=== PATIENT | male | born 1945 | race Caucasian/White ===

== ENCOUNTER → 2018-01-21 08:21 | Outpatient (REF) | payer MEDICARE, OTHER, SELFPAY ==
[2018-01-21 08:31] LABS: Adenovirus F 40/41, stool Not Detected (NotDetected); Astrovirus Not Detected (NotDetected); Campylobacter Not Detected (NotDetected); Clostridium Difficile A/B, PCR Not Detected (NotDetected); Cryptosporidium Not Detected (NotDetected); Cyclospora Cayetanesis Not Detected (NotDetected); Entamoeba histolytica Not Detected (NotDetected); Enteroaggregative E coli Not Detected (NotDetected); Enteropathogenic E coli Not Detected (NotDetected); Enterotoxigenic E coli Not Detected (NotDetected); Giardia lamblia Not Detected (NotDetected); Norovirus Not Detected (NotDetected); Plesimonas Shigalloides, PCR Not Detected (NotDetected); Rotavirus A Not Detected (NotDetected); Salmonella, PCR Not Detected (NotDetected); Sapovirus Not Detected (NotDetected); Shiga-like toxin E coli Not Detected (NotDetected); Shigella Enterovasive E coli Not Detected (NotDetected); Vibrio Cholerae Not Detected (NotDetected); Vibrio, PCR Not Detected (NotDetected); Yersinia Entercolitica, PCR Not Detected (NotDetected)
== END ==
LOC: LAB.CARL 08:21
PROVIDERS: Visit Provider Physician Assistant
DX: R19.7 Diarrhea, unspecified (principal)
CPT/HCPCS: 87507

== ENCOUNTER → 2022-05-20 13:50 | Outpatient (CLI) | payer MEDICARE, SELFPAY | PROVIDERS: PCP Family Medicine; Visit Provider Student in an Organized Health Care Education/Training Program | DX: E11.9 Type 2 diabetes mellitus without complications (principal); Z79.84 Long term (current) use of oral hypoglycemic drugs | CPT/HCPCS: 83036 ==

== ENCOUNTER → 2022-07-06 10:33 | Outpatient (CLI) | payer MEDICARE, SELFPAY ==
[2022-07-06 19:00] LABS: Alanine Aminotransferase 20 U/L (12-78); Albumin Level 4.6 g/dl (3.5-5.0); Albumin/Globulin Ratio 1.9 (1.1-1.8); Alkaline Phosphatase 134 U/L (38-126); Anion Gap 21.9 mEq/L (5-15); Aspartate Amino Transferase 31 U/L (17-59); Bilirubin,Total 0.7 mg/dl (0.2-1.3); Blood Urea Nitrogen 25 mg/dl (9-20); Calcium 10.7 mg/dl (8.4-10.2); Carbon Dioxide 26 mmol/L (22.0-30.0); Chloride 97 mmol/L (98-107); Estimated Glomerular Filt Rate 73 ml/min (>60); GFR (African American) 88 ML/MIN (>60); Globulin 2.4 g/dL (1.3-3.2); Glucose 141 mg/dl (74-100); Potassium 4.9 mmoL/L (3.5-5.1); Sodium 140 mmol/L (136-145)
[2022-07-06 19:26] LABS: Basophils % 0.3 % (0.1-2.0); Eosinophils # 0.1 K/mm3 (0.0-0.4); Eosinophils % 1.1 % (0.1-12.0); Hematocrit 46.8 % (42.0-52.0); Hemoglobin 15.2 g/dL (14.1-18.0); Lymphocytes # 1.2 K/mm3 (0.7-4.5); Mean Corpuscular HGB Conc 32.6 g/dL (31.8-35.4); Mean Corpuscular Volume 101.4 fl (80-94); Mean Platelet Volume 9.1 fl (7.4-10.4); Monocytes # 0.7 K/mm3 (0.1-1.0); Monocytes % 6.5 % (1.7-9.3); Neutrophils # 8.4 K/mm3 (1.8-7.8); Platelet Count 413 K/mm3 (142-424); Red Blood Count 4.61 M/mm3 (4.60-6.20); Red Cell Distribution Width 12.6 % (11.5-17.5); White Blood Count 10.4 K/mm3 (4.8-10.8)
[2022-07-06 19:30] LABS: Thyroid Stimulating Hormone 1.83 uIU/mL (0.465-4.68)
== END ==
PROVIDERS: PCP Family Medicine; Visit Provider Family Medicine
DX: I10 Essential (primary) hypertension (principal); R53.83 Other fatigue; E83.52 Hypercalcemia
CPT/HCPCS: 80053; 83970; 84443; 85025

== ENCOUNTER → 2022-10-05 23:30 | Outpatient (CLI) | payer MEDICARE, SELFPAY ==
[2022-10-05 17:17] LABS: Anion Gap 11.5 mEq/L (5-15); Blood Urea Nitrogen 22 mg/dl (9-20); Calcium 9.2 mg/dl (8.4-10.2); Carbon Dioxide 29 mmol/L (22.0-30.0); Chloride 104 mmol/L (98-107); Estimated Glomerular Filt Rate 73 ml/min (>60); GFR (African American) 88 ML/MIN (>60); Glucose 125 mg/dl (74-100); Potassium 4.5 mmoL/L (3.5-5.1); Sodium 140 mmol/L (136-145)
[2022-10-05 17:41] LABS: Hemoglobin A1C 6.9 % (4.0-6.0)
[2022-10-05 17:49] LABS: Thyroid Stimulating Hormone 1.02 uIU/mL (0.465-4.68)
[2022-10-05 18:08] LABS: Vitamin B12 368 pg/mL (239-931)
== END ==
PROVIDERS: PCP Family Medicine; Visit Provider Family Medicine
DX: G62.9 Polyneuropathy, unspecified; E11.69 Type 2 diabetes mellitus with other specified complication; Z79.84 Long term (current) use of oral hypoglycemic drugs
CPT/HCPCS: 80048; 82607; 83036; 84443

== ENCOUNTER → 2022-10-12 17:17 | Outpatient (CLI) | payer MEDICARE, SELFPAY ==
[2022-10-18 16:13] LABS: Folate, Hemolysate >620.0
== END ==
PROVIDERS: PCP Family Medicine; Visit Provider Family Medicine
DX: G62.9 Polyneuropathy, unspecified (principal)
CPT/HCPCS: 82747; 85014

== ENCOUNTER → 2023-04-26 23:16 | Outpatient (CLI) | payer MEDICARE, SELFPAY ==
[2023-04-26 17:04] LABS: Alanine Aminotransferase 21 U/L (12-78); Albumin Level 4.1 g/dl (3.5-5.0); Albumin/Globulin Ratio 1.6 (1.1-1.8); Alkaline Phosphatase 109 U/L (38-126); Anion Gap 15.4 mEq/L (5-15); Aspartate Amino Transferase 26 U/L (17-59); Basophils % 0.3 % (0.1-2.0); Bilirubin,Total 0.5 mg/dl (0.2-1.3); Blood Urea Nitrogen 27 mg/dl (9-20); Calcium 9.8 mg/dl (8.4-10.2); Carbon Dioxide 29 mmol/L (22.0-30.0); Chloride 99 mmol/L (98-107); Chol/HDL Ratio 4.5 (1-3.5); Cholesterol 206 mg/dl (140-200); Eosinophils # 0.1 K/mm3 (0.0-0.4); Eosinophils % 0.8 % (0.1-12.0); Estimated Glomerular Filt Rate 65 ml/min (>60); GFR (African American) 79 ML/MIN (>60); Globulin 2.5 g/dL (1.3-3.2); Glucose 119 mg/dl (74-100); HDL Cholesterol 46 mg/dl (40-60); Hematocrit 46.6 % (42.0-52.0); Hemoglobin 15.3 g/dL (14.1-18.0); Lymphocytes # 1.6 K/mm3 (0.7-4.5); Mean Corpuscular Volume 103.1 fl (80-94); Monocytes # 0.7 K/mm3 (0.1-1.0); Monocytes % 6.4 % (1.7-9.3); Neutrophils # 7.9 K/mm3 (1.8-7.8); Neutrophils % 76.6 % (37.0-80.0); Platelet Count 238 K/mm3 (142-424); Potassium 4.4 mmoL/L (3.5-5.1); Red Blood Count 4.51 M/mm3 (4.60-6.20); Red Cell Distribution Width 12.6 % (11.5-17.5); Sodium 139 mmol/L (136-145); Total Protein,Serum 6.6 g/dl (6.3-8.2); Triglycerides 300 mg/dl (30-150); VLDL Cholesterol 60 mg/dL (0-40); White Blood Count 10.3 K/mm3 (4.8-10.8)
[2023-04-26 17:15] LABS: Direct LDL Cholesterol 110.43 mg/dL (100-129)
[2023-04-26 17:26] LABS: Hemoglobin A1C 5.9 % (4.0-6.0)
== END ==
PROVIDERS: PCP Family Medicine; Visit Provider Family Medicine
DX: E11.9 Type 2 diabetes mellitus without complications (principal); Z00.00 Encounter for general adult medical examination without abnormal findings; I10 Essential (primary) hypertension; Z79.84 Long term (current) use of oral hypoglycemic drugs; Z79.899 Other long term (current) drug therapy
CPT/HCPCS: 80053; 80061; 83036; 85025

== ENCOUNTER → 2023-06-04 08:27 | Outpatient (CLI) | payer MEDICARE, SELFPAY ==
[2023-06-04 16:52] LABS: Basophils % 0.6 % (0.1-2.0); Eosinophils # 0.1 K/mm3 (0.0-0.4); Eosinophils % 1.7 % (0.1-12.0); Hematocrit 43.9 % (42.0-52.0); Hemoglobin 14.7 g/dL (14.1-18.0); Lymphocytes # 1.2 K/mm3 (0.7-4.5); Lymphocytes % 17.4 % (10-50); Mean Corpuscular HGB Conc 33.5 g/dL (31.8-35.4); Mean Corpuscular Hemoglobin 33.8 pg (27.0-31.2); Mean Corpuscular Volume 100.8 fl (80-94); Monocytes # 0.5 K/mm3 (0.1-1.0); Monocytes % 6.6 % (1.7-9.3); Neutrophils # 5.3 K/mm3 (1.8-7.8); Neutrophils % 73.9 % (37.0-80.0); Platelet Count 240 K/mm3 (142-424); Red Blood Count 4.35 M/mm3 (4.60-6.20); Red Cell Distribution Width 12.8 % (11.5-17.5); White Blood Count 7.2 K/mm3 (4.8-10.8)
[2023-06-04 17:01] LABS: Anion Gap 11.8 mEq/L (5-15); Blood Urea Nitrogen 20 mg/dl (9-20); Calcium 9.5 mg/dl (8.4-10.2); Carbon Dioxide 30 mmol/L (22.0-30.0); Chloride 104 mmol/L (98-107); Estimated Glomerular Filt Rate 82 ml/min (>60); GFR (African American) 99 ML/MIN (>60); Glucose 122 mg/dl (74-100); Potassium 4.8 mmoL/L (3.5-5.1); Sodium 141 mmol/L (136-145)
[2023-06-04 17:20] LABS: T4 (Thyroxine) 7.4 ug/dl (5.53-11.0); Triiodothryronine (T3) Uptake 34 % (23.5-40.5)
[2023-06-04 17:34] LABS: Prostate Specific Ag Screen 2.1 ng/ml (0.0-4.0)
[2023-06-04 17:53] LABS: Erythrocyte Sedimentation Rate 14 mm/hr (0-20); Vitamin B12 538 pg/mL (239-931)
[2023-06-04 18:00] LABS: Free T4 (Free Thyroxine) 0.92 ng/dl (0.78-2.19)
[2023-06-06 10:10] LABS: C-Reactive Protein < 0.2 mg/L (0-4)
[2023-06-08 09:00] LABS: Antinuclear Antibodies (ANA) Negative
== END ==
PROVIDERS: PCP Nurse Practitioner Family; Visit Provider Nurse Practitioner Family
DX: R53.83 Other fatigue (principal); Z12.5 Encounter for screening for malignant neoplasm of prostate; Z79.899 Other long term (current) drug therapy
CPT/HCPCS: 80048; 82607; 84436; 84439; 84443; 84479; 85025; 85651; 86038; 86140; G0103

== ENCOUNTER 2023-10-26 20:17 | Outpatient (CLI) | payer MEDICARE, SELFPAY ==
[2023-10-26 16:51] LABS: Basophils % 0.5 % (0.1-2.0); Eosinophils # 0.2 K/mm3 (0.0-0.4); Eosinophils % 2.9 % (0.1-12.0); Hemoglobin 14.2 g/dL (14.1-18.0); Lymphocytes # 1.3 K/mm3 (0.7-4.5); Lymphocytes % 20.7 % (10-50); Mean Corpuscular HGB Conc 33.1 g/dL (31.8-35.4); Mean Corpuscular Hemoglobin 35.3 pg (27.0-31.2); Mean Corpuscular Volume 106.4 fl (80-94); Mean Platelet Volume 9.1 fl (7.4-10.4); Monocytes # 0.4 K/mm3 (0.1-1.0); Monocytes % 6.7 % (1.7-9.3); Neutrophils # 4.2 K/mm3 (1.8-7.8); Neutrophils % 69.2 % (37.0-80.0); Platelet Count 245 K/mm3 (142-424); Red Blood Count 4.04 M/mm3 (4.60-6.20); White Blood Count 6.1 K/mm3 (4.8-10.8)
[2023-10-26 16:52] LABS: Alanine Aminotransferase 29 U/L (12-78); Alkaline Phosphatase 111 U/L (38-126); Anion Gap 5.6 mEq/L (5-15); Aspartate Amino Transferase 34 U/L (17-59); Bilirubin,Total 0.5 mg/dl (0.2-1.3); Blood Urea Nitrogen 18 mg/dl (9-20); Calcium 9.8 mg/dl (8.4-10.2); Carbon Dioxide 33 mmol/L (22.0-30.0); Chloride 104 mmol/L (98-107); Chol/HDL Ratio 4.2 (1-3.5); Cholesterol 117 mg/dl (140-200); Estimated Glomerular Filt Rate 82 ml/min (>60); GFR (African American) 99 ML/MIN (>60); Glucose 112 mg/dl (74-100); HDL Cholesterol 28 mg/dl (40-60); Potassium 4.6 mmoL/L (3.5-5.1); Sodium 138 mmol/L (136-145); Triglycerides 147 mg/dl (30-150); VLDL Cholesterol 29 mg/dL (0-40)
== END 2023-10-26 23:59 ==
LOC: LAB.DROPOF 20:17
PROVIDERS: PCP Nurse Practitioner Family; Visit Provider Nurse Practitioner Family
DX: E11.9 Type 2 diabetes mellitus without complications (principal); E78.5 Hyperlipidemia, unspecified; Z79.84 Long term (current) use of oral hypoglycemic drugs
CPT/HCPCS: 80053; 80061; 83036; 85025

== ENCOUNTER 2024-06-16 11:20 | Outpatient (CLI) | payer MEDICARE, SELFPAY ==
[2024-06-16 16:34] LABS: Creatinine,Urine Random 131 mg/dL (Not Estab.); Microalbumin < 6.000 mg/L (0-16.7)
== END 2024-06-16 23:59 | disposition home or self-care (01) ==
LOC: LAB.DROPOF 06-19 11:20
PROVIDERS: PCP Family Medicine; Visit Provider Family Medicine
DX: E11.9 Type 2 diabetes mellitus without complications (principal)
CPT/HCPCS: 82043; 82570

== ENCOUNTER 2024-08-23 10:47 | Emergency (ER) | payer MEDICARE, SELFPAY ==
[2024-08-23 11:12] VITALS: BP 123/59; PULSE 102; RESP 102; TEMP 37.3; O2SAT 96; BMI 25.8
--- NOTE | 2024-08-23 11:17 | XR_ITS ---
PROCEDURE INFORMATION: Exam: XR Chest Exam date and time: 08/23/2024 11:31 AM Age: 79 years old Clinical indication: Cough; Additional info: Chest hurting/cough TECHNIQUE: Imaging protocol: Radiologic exam of the chest. Views: 2 views. COMPARISON: No relevant prior studies available. FINDINGS: Lungs: Unremarkable. No consolidation. Pleural spaces: Unremarkable. No pleural effusion. No pneumothorax. Heart/Mediastinum: Unremarkable. No cardiomegaly. Bones/joints: Prior median sternotomy. No acute bony abnormalities. IMPRESSION: No active disease.
[2024-08-23 11:19] LABS: Coronavirus 19, PCR Not Detected (NotDetected); Influenza B, PCR Not Detected (NotDetected)
--- NOTE | 2024-08-23 11:23 | ECG_ITS ---
APPROVED REPORT Exam: Resting ECG HR:96 bpm ECG Measurements Heart Rate 96 AXES DC 170 P 76 QRSd 146 QRS 20 QT 367 T 33 QTc 420 Conclusion SINUS RHYTHM INDETERMINATE AXIS RIGHT BUNDLE BRANCH BLOCK [120+ ms QRS DURATION, UPRIGHT V1, 40+ ms S IN I/aVL/V4/V5/V6] MODERATE VOLTAGE CRITERIA FOR LVH, CONSIDER NORMAL VARIANT [MEETS CRITERIA IN ONE OF: R(aVL), S(V1), R(V5), R(V5/V6)+S(V1)] POSSIBLE ANTERIOR MYOCARDIAL INFARCTION , OF INDETERMINATE AGE [30 ms Q WAVE IN V3/V4, OR R < 0.2 mV IN V4] INFERIOR MYOCARDIAL INFARCTION , PROBABLY OLD [40+ ms Q WAVE AND/OR ST/T ABNORMALITY IN II/aVF] ABNORMAL ECG Electronically signed by : SONIA PALACIO, 08/23/2024 15:31:07
[2024-08-23 11:30] VITALS: BP 127/62; PULSE 80; O2SAT 96
[2024-08-23 11:42] LABS: Chloride 102 mmol/L (98-107); Hematocrit 37.5 % (42.0-52.0); Hemoglobin 12.9 g/dL (14.1-18.0); Mean Corpuscular HGB Conc 34.4 g/dL (31.8-35.4); Mean Corpuscular Hemoglobin 33.5 pg (27.0-31.2); Mean Corpuscular Volume 97.4 fl (80-94); Potassium 3.9 mmoL/L (3.5-5.1); Red Blood Count 3.85 M/mm3 (4.60-6.20); Sodium 131 mmol/L (136-145); White Blood Count 7.7 K/mm3 (4.8-10.8)
[2024-08-23 11:43] LABS: Basophils % 0.4 % (0.1-2.0); Eosinophils % 0.5 % (0.1-12.0); Lymphocytes # 0.4 K/mm3 (0.7-4.5); Lymphocytes % 5.7 % (10-50); Mean Platelet Volume 9.1 fl (7.4-10.4); Monocytes # 0.8 K/mm3 (0.1-1.0); Monocytes % 10.4 % (1.7-9.3); Neutrophils # 6.3 K/mm3 (1.8-7.8); Neutrophils % 82.6 % (37.0-80.0); Platelet Count 162 K/mm3 (142-424)
[2024-08-23 11:45] LABS: Alanine Aminotransferase 26 U/L (12-78); Albumin/Globulin Ratio 1.9 (1.1-1.8); Alkaline Phosphatase 91 U/L (38-126); Anion Gap 5.9 mEq/L (5-15); Aspartate Amino Transferase 35 U/L (17-59); Bilirubin,Total 0.8 mg/dl (0.2-1.3); Blood Urea Nitrogen 17 mg/dl (9-20); Calcium 9.3 mg/dl (8.4-10.2); Carbon Dioxide 27 mmol/L (22.0-30.0); Creatinine Clearance Estimated 69 mL/min (50-200); Estimated Glomerular Filt Rate 72 ml/min (>60); GFR (African American) 88 ML/MIN (>60); Globulin 2.1 g/dL (1.3-3.2); Glucose 127 mg/dl (74-100); Total Protein,Serum 6.1 g/dl (6.3-8.2)
[2024-08-23 11:59] LABS: Troponin I < 0.01 ng/ml (0.00-0.034)
[2024-08-23 12:00] VITALS: BP 113/68; O2SAT 92
--- NOTE | 2024-08-23 12:12 | HMH.EDGENADL ---
Discharge Plan Disposition Patient Disposition: Home, Self-Care Condition: Good Prescriptions Prescriptions: New oseltamivir [Tamiflu] 75 mg capsule 75 mg PO BID 5 Days Qty: 10 0RF No Action multivitamin [Multiple Vitamins] Tablet 1 tab PO DAILY vitamin [id number] acid 1,000-400 mcg lozenge sublingual potassium citrate 99 mg capsule PO DAILY (DME) lancets [Accu-Chek Softclix Lancets] Misc See Rx Instructions .ROUTE .MEDSUPPLY Qty: 100 Rx Instructions: As directed aspirin 81 mg tablet,delayed release (DR/EC) 81 mg PO DAILY Qty: 30 3RF Zyrtec 10 mg capsule 10 mg PO DAILY PRN (Reason: allergy symptoms) Qty: 30 3RF ferrous sulfate 324 mg (65 mg iron) tablet,delayed release (DR/EC) 324 mg PO DAILY Qty: 30 3RF hydrocodone-acetaminophen 5-325 mg tablet 1 tab PO Q4-6H PRN (Reason: pain) Qty: 30 0RF atorvastatin 80 mg tablet See Rx Instructions .ROUTE .COMPLEX Qty: 90 3RF Dose Instruction: TAKE 1 TABLET BY MOUTH AT BEDTIME NIGHTLY Rx Instructions: TAKE 1 TABLET BY MOUTH AT BEDTIME NIGHTLY buspirone 15 mg tablet 15 mg PO TID Qty: 270 3RF glimepiride 1 mg tablet 1 mg PO DAILY Qty: 90 3RF hydrochlorothiazide 12.5 mg tablet 12.5 mg PO DAILY Qty: 90 3RF metformin 500 mg tablet extended release 24 hr See Rx Instructions .ROUTE .COMPLEX Qty: 360 3RF Dose Instruction: TAKE 2 TABLETS BY MOUTH TWICE DAILY FOR DIABETES Rx Instructions: TAKE 2 TABLETS BY MOUTH TWICE DAILY FOR DIABETES metoprolol tartrate 25 mg tablet 25 mg PO BID Qty: 180 3RF pregabalin 25 mg capsule 25 mg PO Q8H Qty: 90 3RF tamsulosin 0.4 mg capsule 0.4 mg PO DAILY 30 Days Qty: 90 3RF valsartan 40 mg tablet 40 mg PO DAILY 90 Days Qty: 90 3RF (DME) lancets [Accu-Chek Softclix Lancets] Misc See Rx Instructions .Route Qty: 100 3RF Rx Instructions: use 1 to check Glucose once a day (DME) Accu-Chek Guide test strips Strip See Rx Instructions .ROUTE .MEDSUPPLY Qty: 100 2RF Rx Instructions: Pt is to test once a day. clopidogrel 75 mg tablet 75 mg PO DAILY Qty: 90 0RF Referrals Follow up/Referrals: Mane Cui MD [Primary Care Provider] - See instructions Activity Restrictions/Add. Instructions Additional Instructions/Restrictions: Continue to take Tylenol alternating Motrin to control your fever and bodyaches. Stay hydrated. Return to the ER for any worsening signs or symptoms including shortness of breath low oxygen or worsening signs or symptoms as needed Clinical Impressions Clinical Impression: Influenza A Instructions Patient Instructions: DI for Viral Upper Respiratory Infection -- Adult Print Language Print Language: Slovak Discharge ED Provider: Augustin Duran General Adult HPI <YARIEL Shine - Last Filed: 08/23/24 13:46> General Chief complaint: Upper Respiratory Infection Stated complaint: cough,chest congestion,nasal drainage Time Seen by Provider: 08/23/24 11:30 Mode of Arrival: Ambulatory Source of Information: Patient Limitations: No Limitations Description of Symptoms (Recalled from ER Triage Doc. by RN): c/o sore throat, chest hurting while coughing, [place] and nasal drainage for a few days History of Present Illness HPI narrative: Patient presents for evaluation of cough headache fever chills for 3 days. Patient denies cardiac chest pain shortness of breath hemoptysis hematochezia melena nausea vomiting diarrhea. He has tried [id number] medications without success relief. Related Data Home Medications ?Medication ?Instructions ?Recorded ?Confirmed lancets (Accu-Chek Softclix #100 ea 05/20/22 07/31/24 Lancets) multivitamin (Multiple Vitamins 1 tab PO DAILY 05/20/22 07/31/24 tablet) potassium citrate 99 mg capsule mg PO DAILY 05/20/22 07/31/24 vitamin B12 1,000 mcg-folic acid demetris sublingual 05/20/22 07/31/24 400 mcg sublingual lozenge Previous Rx's ?Medication ?Instructions ?Recorded aspirin 81 mg tablet,delayed 81 mg PO DAILY #30 tabs 05/20/22 release cetirizine 10 mg capsule (Zyrtec) 10 mg PO DAILY PRN allergy 05/20/22 symptoms #30 caps ferrous sulfate 324 mg (65 mg 324 mg PO DAILY #30 tabs 05/20/22 iron) tablet,delayed release lancets (Accu-Chek Softclix #100 ea 05/07/23 Lancets) blood sugar diagnostic (Accu-Chek #100 ea 08/31/23 Guide test strips) atorvastatin 80 mg tablet See Rx Instructions .Route 03/13/24 .COMPLEX #90 tabs buspirone 15 mg tablet 15 mg PO TID #270 tabs 03/13/24 glimepiride 1 mg tablet 1 mg PO DAILY #90 tabs 03/13/24 hydrochlorothiazide 12.5 mg tablet 12.5 mg PO DAILY #90 tabs 03/13/24 metformin 500 mg tablet,extended See Rx Instructions .Route 03/13/24 release 24 hr .COMPLEX #360 tabs metoprolol tartrate 25 mg tablet 25 mg PO BID #180 tabs 03/13/24 pregabalin 25 mg capsule 25 mg PO Q8H #90 caps 03/13/24 tamsulosin 0.4 mg capsule 0.4 mg PO DAILY 30 days #90 caps 03/13/24 valsartan 40 mg tablet 40 mg PO DAILY HTN 90 days #90 tabs 03/13/24 hydrocodone 5 mg-acetaminophen 325 1 tab PO Q4-6H PRN pain #30 tabs 07/31/24 mg tablet clopidogrel 75 mg tablet 75 mg PO DAILY #90 tabs 08/14/24 oseltamivir 75 mg capsule (Tamiflu) 75 mg PO BID 5 days #10 caps 08/23/24 Allergies Allergy/AdvReac Type Severity Reaction Status Date / Time amoxicillin Allergy Verified 07/31/24 08:35 codeine Allergy Verified 07/31/24 08:35 lisinopril Allergy Verified 07/31/24 08:35 phenazopyridine (From Allergy Verified 07/31/24 08:35 Pyridium) contrast dye Allergy Uncoded 07/31/24 08:35 [facility] <YARIEL Shine - Last Filed: 08/23/24 13:46> [facility] Disclaimer: The information contained in this section may have been updated after the patient was seen, as this information can be updated by other users. Medical History Shingles Hypercalcemia Acute low back pain Kidney stone Hypertension Hyperlipidemia Heart failure Heart attack Diabetes mellitus Depression CAD (coronary artery disease) Coronary artery disease involving coronary bypass graft Sleep apnea Arthritis Surgical History Hx of CABG H/O heart artery stent H/O lithotripsy History of shoulder surgery Family History Daughter Hyperlipidemia Hypertension Diabetes Social History Smoking Status: Former smoker second hand exposure: No alcohol intake: never current occupational status: retired Travel in the last 8 weeks: None household members: spouse housing: house marital status: Have you lived/traveled outside [place] in past 30 days?: No Contact w/someone who lives/traveled outside US past 30 days?: No Exposure to someone with infectious disease in past 14 days?: No Do you have a fever (greater than 100.4 F or 38 C)?: No Have you tested positive for COVID-19: No Exposed to someone with COVID-19 in past 14 days?: No Do you have a sore throat?: No Do you have a cough?: Yes Do you have any weakness?: No Do you have any diarrhea?: No Are you experiencing any unusual bleeding?: No Do you have any muscle aches/pain?: No Do you have any abdominal pain?: No Are you experiencing loss of taste or smell?: No Other Medical History Have you received the Pneumonia Vaccine: No <YARIEL Shine - Last Filed: 08/23/24 13:46> ROS Obtained: Yes Systems reviewed as appropriate & no additional complaints except as documented Physical Exam <YARIEL Shine - Last Filed: 08/23/24 13:46> General General appearance: alert and in no apparent distress Respiratory Respiratory exam: Present normal lung sounds bilaterally Cardiovascular Cardiovascular exam: Present regular rate Neurological Exam Neurological exam: Present alert and oriented X3 Medical Decision Making <YARIEL Shine - Last Filed: 08/23/24 13:46> Medical Records Medical records reviewed: Yes I reviewed the patient's medical records. Screening: Per USPSTF and CDC recommendations, given the prevalence of disease in our region, it is our hospital?s policy to screen for HIV and viral Hepatitis for all patients aged 18 and over and those with ongoing risk factors. [place] Inquiry Pt receiving controlled substance: No Vital Signs: 12/25/24 11:12 08/23/24 11:30 08/23/24 12:00 Temperature 99.1 F Temperature Source Oral Pulse Rate 80 Pulse Rate [Left Radial] 102 H Respiratory Rate 102 H Blood Pressure 127/62 113/68 Blood Pressure [Right Arm] 123/59 L Blood Pressure Mean [Right Arm] 80 Blood Pressure Source Blood Pressure Position 02 Sat by Pulse Oximetry 96 96 92 L Oxygen Delivery Method Room Air Room Air Room Air 08/23/24 12:31 08/23/24 12:45 08/23/24 13:34 Temperature 98.9 F Temperature Source Oral Pulse Rate 65 103 H 63 Pulse Rate [Left Radial] Respiratory Rate 20 Blood Pressure 143/67 H 143/67 H 143/67 H Blood Pressure [Right Arm] Blood Pressure Mean [Right Arm] Blood Pressure Source Automatic Cuff Blood Pressure Position Sitting 02 Sat by Pulse Oximetry 97 94 L Oxygen Delivery Method Room Air Room Air Lab Data Lab results reviewed: Yes I reviewed the patient's lab results. Lab Results 08/23/24 11:17: SARS-CoV-2 (PCR) Not detected, Influenza A Untype (PCR) Detected A, Influenza Type B (PCR) Not detected 08/23/24 11:28: WBC 7.7, RBC 3.85 L, Hgb 12.9 L, Hct 37.5 L, MCV 97.4 H, MCH 33.5 H, MCHC 34.4, RDW 12.0, Plt Count 162, MPV 9.1, Neut % (Auto) 82.6 H, Lymph % (Auto) 5.7 L, Rogers % (Auto) 10.4 H, Eos % (Auto) 0.5, Baso % (Auto) 0.4, Neut # (Auto) 6.3, Lymph # (Auto) 0.4 L, Rogers # (Auto) 0.8, Eos # (Auto) 0.0, Baso # (Auto) 0.0, Sodium 131 L, Potassium 3.9, Chloride 102, Carbon Dioxide 27, Anion Gap 5.9, BUN 17, Creatinine 1.00, Estimated Creat Clear 69, Estimated GFR 72, Est GFR ( Amer) 88, Glucose 127 H, Calcium 9.3, Total Bilirubin 0.8, AST 35, ALT 26, Alkaline Phosphatase 91, Troponin I < 0.01, Total Protein 6.1 L, Albumin 4.0, Globulin 2.1, Albumin/Globulin Ratio 1.9 H 08/23/24 11:28 08/23/24 11:28 Orders (Tests/Meds): ED MEDICATIONS Discontinued Medications Generic Name Dose Route Start Last Admin Trade Name Dami PRN Reason Stop Dose Admin Acetaminophen 1,000 mg 08/23/24 12:14 08/23/24 12:24 Acetaminophen 500mg Tab PO 08/23/24 12:15 1,000 mg ONCE ONE Administration Ibuprofen 800 mg 08/23/24 12:14 08/23/24 12:24 Ibuprofen 400 Mg Tablet PO 08/23/24 12:15 800 mg ONCE ONE Administration Oseltamivir Phosphate 75 mg 08/23/24 13:18 08/23/24 13:28 Oseltamivir 75mg Capsule PO 08/23/24 13:19 75 mg ONCE ONE Administration ORDERS Category Date Time Status XR chest 2V Stat Exams 08/23/24 11:17 Completed Complete Blood Count Auto Diff Stat Lab 08/23/24 11:28 Completed Comprehensive Metabolic Panel Stat Lab 08/23/24 11:28 Completed Rapid PCR Covid and Flu A/B Stat Lab 08/23/24 11:17 Completed Troponin I Stat Lab 08/23/24 11:28 Completed Medical Decision Narrative: In summary patient is a 79-year-old male who presents to the emergency department for evaluation of cough myalgias fever headache. Patient is normotensive but tachycardic upon arrival, the temperature of 100.9 taken by myself. Physical exam shows some shivers hot to touch skin but no diaphoresis. Breath sounds are clear and equal bilaterally to the bases without adventitious sounds or increased work of breathing. Differential diagnosis includes viral or bacterial upper respiratory tract infection etc. Initial workup will be conducted with hematologic labs plain film chest x-ray COVID and flu swabs. Initial interventions include Tylenol and ibuprofen. Initial workup reviewed by me shows that patient has slight hyponatremia with remainder of his hematologic labs being nonactionable including normal CBC with no shift. My informal interpretation of his plain film chest x-ray shows no acute processes. Patient is influenza A positive per his respiratory swabs. Upon repeat evaluation patient is now with a heart rate of 63 breathing 20 times a minute with a temperature of 98.9 satting at 94% on room air. Given this patient is appropriate for discharge with prescription for Tamiflu with first dose given here. <Augustin Duran MD - Last Filed: 08/23/24 14:35> Vital Signs: 08/23/24 11:12 08/23/24 11:30 08/23/24 12:00 Temperature 99.1 F Temperature Source Oral Pulse Rate 80 Pulse Rate [Left Radial] 102 H Respiratory Rate 102 H Blood Pressure 127/62 113/68 Blood Pressure [Right Arm] 123/59 L Blood Pressure Mean [Right Arm] 80 Blood Pressure Source Blood Pressure Position 02 Sat by Pulse Oximetry 96 96 92 L Oxygen Delivery Method Room Air Room Air Room Air 08/23/24 12:31 08/23/24 12:45 08/23/24 13:34 Temperature 98.9 F Temperature Source Oral Pulse Rate 65 103 H 63 Pulse Rate [Left Radial] Respiratory Rate 20 Blood Pressure 143/67 H 143/67 H 143/67 H Blood Pressure [Right Arm] Blood Pressure Mean [Right Arm] Blood Pressure Source Automatic Cuff Blood Pressure Position Sitting 02 Sat by Pulse Oximetry 97 94 L Oxygen Delivery Method Room Air Room Air Lab Data Lab Results 08/23/24 11:17: SARS-CoV-2 (PCR) Not detected, Influenza A Untype (PCR) Detected A, Influenza Type B (PCR) Not detected 08/23/24 11:28: WBC 7.7, RBC 3.85 L, Hgb 12.9 L, Hct 37.5 L, MCV 97.4 H, MCH 33.5 H, MCHC 34.4, RDW 12.0, Plt Count 162, MPV 9.1, Neut % (Auto) 82.6 H, Lymph % (Auto) 5.7 L, Rogers % (Auto) 10.4 H, Eos % (Auto) 0.5, Baso % (Auto) 0.4, Neut # (Auto) 6.3, Lymph # (Auto) 0.4 L, Rogers # (Auto) 0.8, Eos # (Auto) 0.0, Baso # (Auto) 0.0, Sodium 131 L, Potassium 3.9, Chloride 102, Carbon Dioxide 27, Anion Gap 5.9, BUN 17, Creatinine 1.00, Estimated Creat Clear 69, Estimated GFR 72, Est GFR ( Amer) 88, Glucose 127 H, Calcium 9.3, Total Bilirubin 0.8, AST 35, ALT 26, Alkaline Phosphatase 91, Troponin I < 0.01, Total Protein 6.1 L, Albumin 4.0, Globulin 2.1, Albumin/Globulin Ratio 1.9 H Orders (Tests/Meds): ED MEDICATIONS Discontinued Medications Generic Name Dose Route Start Last Admin Trade Name Dami PRN Reason Stop Dose Admin Acetaminophen 1,000 mg 08/23/24 12:14 08/23/24 12:24 Acetaminophen 500mg Tab PO 08/23/24 12:15 1,000 mg ONCE ONE Administration Ibuprofen 800 mg 08/23/24 12:14 08/23/24 12:24 Ibuprofen 400 Mg Tablet PO 08/23/24 12:15 800 mg ONCE ONE Administration Oseltamivir Phosphate 75 mg 08/23/24 13:18 08/23/24 13:28 Oseltamivir 75mg Capsule PO 08/23/24 13:19 75 mg ONCE ONE Administration ORDERS Category Date Time Status XR chest 2V Stat Exams 08/23/24 11:17 Completed Complete Blood Count Auto Diff Stat Lab 08/23/24 11:28 Completed Comprehensive Metabolic Panel Stat Lab 08/23/24 11:28 Completed Rapid PCR Covid and Flu A/B Stat Lab 08/23/24 11:17 Completed Troponin I Stat Lab 08/23/24 11:28 Completed ECG Data Tracing #1: Independently interpreted by me rate is 96, rhythm is regular, axis is borderline leftward deviated, right bundle branch block, no ST elevation in anatomical contiguous leads, QTc 420. Medical Decision Narrative: In summary patient is a 79-year-old male who presents to the emergency department for evaluation of cough myalgias fever headache. Patient is normotensive but tachycardic upon arrival, the temperature of 100.9 taken by myself. Physical exam shows some shivers hot to touch skin but no diaphoresis. Breath sounds are clear and equal bilaterally to the bases without adventitious sounds or increased work of breathing. Differential diagnosis includes viral or bacterial upper respiratory tract infection etc. Initial workup will be conducted with hematologic labs plain film chest x-ray COVID and flu swabs. Initial interventions include Tylenol and ibuprofen. Initial workup reviewed by me shows that patient has slight hyponatremia with remainder of his hematologic labs being nonactionable including normal CBC with no shift. My informal interpretation of his plain film chest x-ray shows no acute processes. Patient is influenza A positive per his respiratory swabs. Upon repeat evaluation patient is now with a heart rate of 63 breathing 20 times a minute with a temperature of 98.9 satting at 94% on room air. Given this patient is appropriate for discharge with prescription for Tamiflu with first dose given here. I was consulted by the SAMEER, and we discussed the complexity of the problems being addressed. I approved the treatment and management plan for this patient's care in the emergency department, thus performing a substantive portion of the medical decision making. Patient has influenza being treated with Tamiflu given age. He has mild hyponatremia with a normal baseline for which she has contacted after discharge he will follow-up on an outpatient basis for which there was no acute intervention needed in the emergency department. Augustin Duran MD Critical Care <YARIEL Shine - Last Filed: 08/23/24 13:46> Critical Care Time Critical Care Time: No
[2024-08-23] MEDS: IBUPROFEN 400 MG TABLET 800 MG PO (12:24)
[2024-08-23] MEDS: ACETAMINOPHEN 500MG TAB 1000 MG PO (12:24)
[2024-08-23 12:30] LABS: Influenza A, PCR Detected (NotDetected)
[2024-08-23 12:31] VITALS: BP 143/67; PULSE 65; O2SAT 97
[2024-08-23 12:45] VITALS: BP 143/67; PULSE 103; O2SAT 94
[2024-08-23] MEDS: OSELTAMIVIR 75MG CAPSULE 75 MG PO (13:28)
[2024-08-23 13:34] VITALS: BP 143/67; PULSE 63; RESP 20; TEMP 37.2; O2SAT 96
== END 2024-08-23 13:36 | disposition home or self-care (01) ==
PROVIDERS: Emergency Provider Emergency Medicine; PCP Family Medicine
DX: E87.1 Hypo-osmolality and hyponatremia (principal); J10.1 Influenza due to other identified influenza virus with other respiratory manifestations; R05.9 Cough, unspecified; R09.89 Other specified symptoms and signs involving the circulatory and respiratory systems; R51.9 Headache, unspecified; R09.81 Nasal congestion; R50.9 Fever, unspecified
CPT/HCPCS: 71046; 80053; 84484; 85025; 87636; 93005; 99284

== ENCOUNTER 2024-12-02 22:47 | Emergency (ER) | payer MEDICARE, SELFPAY ==
--- NOTE | 2024-12-02 22:55 | ECG_ITS ---
APPROVED REPORT Exam: Resting ECG HR:75 bpm ECG Measurements Heart Rate 75 AXES HI 188 P 66 QRSd 145 QRS 50 QT 379 T 32 QTc 408 Conclusion SINUS RHYTHM RIGHT BUNDLE BRANCH BLOCK [120+ ms QRS DURATION, UPRIGHT V1, 40+ ms S IN I/aVL/V4/V5/V6] ANTERIOR MYOCARDIAL INFARCTION , OF INDETERMINATE AGE [40+ ms Q WAVE AND/OR ST/T ABNORMALITY IN V3/V4] INFERIOR MYOCARDIAL INFARCTION , PROBABLY OLD [40+ ms Q WAVE AND/OR ST/T ABNORMALITY IN II/aVF] No STEMI, similar to prior Electronically signed by : BUSTER CONNOLLY, 12/03/2024 05:45:55
[2024-12-02 22:58] VITALS: BP 143/76; PULSE 80; RESP 16; TEMP 36.7; O2SAT 98; BMI 25.0
--- NOTE | 2024-12-02 23:06 | ED_ITS ---
Discharge Plan Disposition Patient Disposition: Home, Self-Care Condition: Good Prescriptions Prescriptions: New lidocaine 5 % adhesive patch,medicated See Rx Instructions .ROUTE .COMPLEX Qty: 15 0RF Rx Instructions: Apply to most painful area and leave on for 12 hours. Remove and leave off for 12 hours before using a new patch No Action multivitamin [Multiple Vitamins] Tablet 1 tab PO DAILY vitamin B63-gwlke acid 1,000-400 mcg lozenge sublingual potassium citrate 99 mg capsule PO DAILY (DME) lancets [Accu-Chek Softclix Lancets] Misc See Rx Instructions .ROUTE .MEDSUPPLY Qty: 100 Rx Instructions: As directed aspirin 81 mg tablet,delayed release (DR/EC) 81 mg PO DAILY Qty: 30 3RF Zyrtec 10 mg capsule 10 mg PO DAILY PRN (Reason: allergy symptoms) Qty: 30 3RF ferrous sulfate 324 mg (65 mg iron) tablet,delayed release (DR/EC) 324 mg PO DAILY Qty: 30 3RF budesonide-formoterol 160-4.5 mcg/actuation HFA aerosol inhaler 2 puff inhalation Q12H Qty: 10.2 2RF atorvastatin 80 mg tablet See Rx Instructions .ROUTE .COMPLEX Qty: 90 3RF Dose Instruction: TAKE 1 TABLET BY MOUTH AT BEDTIME NIGHTLY Rx Instructions: TAKE 1 TABLET BY MOUTH AT BEDTIME NIGHTLY buspirone 15 mg tablet 15 mg PO TID Qty: 270 3RF glimepiride 1 mg tablet 1 mg PO DAILY Qty: 90 3RF hydrochlorothiazide 12.5 mg tablet 12.5 mg PO DAILY Qty: 90 3RF metformin 500 mg tablet extended release 24 hr See Rx Instructions .ROUTE .COMPLEX Qty: 360 3RF Dose Instruction: TAKE 2 TABLETS BY MOUTH TWICE DAILY FOR DIABETES Rx Instructions: TAKE 2 TABLETS BY MOUTH TWICE DAILY FOR DIABETES metoprolol tartrate 25 mg tablet 25 mg PO BID Qty: 180 3RF tamsulosin 0.4 mg capsule 0.4 mg PO DAILY 30 Days Qty: 90 3RF valsartan 40 mg tablet 40 mg PO DAILY 90 Days Qty: 90 3RF acyclovir 800 mg tablet 800 mg PO BID Qty: 60 4RF hydrocodone-acetaminophen 5-325 mg tablet 1 tab PO Q4-6H PRN (Reason: pain) Qty: 30 0RF (DME) lancets [Accu-Chek Softclix Lancets] Misc See Rx Instructions .Route Qty: 100 3RF Rx Instructions: use 1 to check Glucose once a day (DME) Accu-Chek Guide test strips Strip See Rx Instructions .ROUTE .MEDSUPPLY Qty: 100 2RF Rx Instructions: Pt is to test once a day. pregabalin 25 mg capsule 25 mg PO Q8H Qty: 90 3RF clopidogrel 75 mg tablet See Rx Instructions .ROUTE .COMPLEX Qty: 90 0RF Dose Instruction: Take 1 tablet by mouth once daily Rx Instructions: Take 1 tablet by mouth once daily Referrals Follow up/Referrals: Mane Cui MD [Primary Care Provider] - See instructions Activity Restrictions/Add. Instructions Additional Instructions/Restrictions: You were evaluated in the ER and are appropriate for discharge at this time. Take Tylenol or ibuprofen if needed for pain, do not exceed the recommended dose on the bottle. Drink water and eat a small snack each time you take these medications to avoid side effects. Ibuprofen can increase your risk of bleeding. Only take your previously prescribed hydrocodone-acetaminophen if needed for severe, breakthrough pain. This medication can cause significant side effects including sleepiness, poor judgment, and addiction. Do not drive or operate machinery after taking it. This medication can also cause constipation. Use the incentive spirometer 4 times a day. Use the provided lidocaine patches if needed as directed. Make an appointment with your primary care doctor for reevaluation in 2 to 3 days to discuss your results and the incidental lung nodule. Return to the ER with any new, worsening, or otherwise concerning symptoms. Clinical Impressions Clinical Impression: Incidental pulmonary nodule, Fracture of rib of left side with routine healing Print Language Print Language: Algerian Discharge ED Provider: Cuco Colunga HPI General Chief Complaint: Chest Pain Stated Complaint: AO 3 wks ago, fell, pain in upper left chest Time Seen by Provider: 12/02/24 23:02 History of Present Illness HPI narrative: 79-year-old male with history of four-vessel CABG in 2011, diabetes, hypertension, previous rotator cuff injuries presents to the ER with persistent left-sided chest pain for the last 3 weeks. Patient reports he was working on a roof when he fell forward onto the roof. It was not a significant distance that he fell but he did land on the left side of his chest. Since that time he has had persistent discomfort in the left side of the chest. It is not exacerbated or improved by anything. It has not worsened nor improved since the initial injury. Tonight it seemed slightly worse than normal so he came to the ER for evaluation. He reported taking oxycodone prior to arrival but I reviewed his medications which demonstrate he was recently prescribed hydrocodone and he states that is what he took. He states the pain is in the left chest over his heart and radiates around the left side to his back under the shoulder blade. It is not any worse with deep breathing or movement. He reports no fevers, chills, difficulty breathing, numbness, tingling, weakness, abdominal pain, or any other associated complaints. Related Data Home Medications ?Medication ?Instructions ?Recorded ?Confirmed lancets (Accu-Chek Softclix #100 ea 05/20/22 11/28/24 Lancets) multivitamin (Multiple Vitamins 1 tab PO DAILY 05/20/22 11/28/24 tablet) potassium citrate 99 mg capsule mg PO DAILY 05/20/22 11/28/24 vitamin B12 1,000 mcg-folic acid demetris sublingual 05/20/22 11/28/24 400 mcg sublingual lozenge Previous Rx's ?Medication ?Instructions ?Recorded aspirin 81 mg tablet,delayed 81 mg PO DAILY #30 tabs 05/20/22 release cetirizine 10 mg capsule (Zyrtec) 10 mg PO DAILY PRN allergy 05/20/22 symptoms #30 caps ferrous sulfate 324 mg (65 mg 324 mg PO DAILY #30 tabs 05/20/22 iron) tablet,delayed release lancets (Accu-Chek Softclix #100 ea 05/07/23 Lancets) blood sugar diagnostic (Accu-Chek #100 ea 08/31/23 Guide test strips) atorvastatin 80 mg tablet See Rx Instructions .Route 03/13/24 .COMPLEX #90 tabs buspirone 15 mg tablet 15 mg PO TID #270 tabs 03/13/24 glimepiride 1 mg tablet 1 mg PO DAILY #90 tabs 03/13/24 hydrochlorothiazide 12.5 mg tablet 12.5 mg PO DAILY #90 tabs 03/13/24 metformin 500 mg tablet,extended See Rx Instructions .Route 03/13/24 release 24 hr .COMPLEX #360 tabs metoprolol tartrate 25 mg tablet 25 mg PO BID #180 tabs 03/13/24 tamsulosin 0.4 mg capsule 0.4 mg PO DAILY 30 days #90 caps 03/13/24 valsartan 40 mg tablet 40 mg PO DAILY HTN 90 days #90 tabs 03/13/24 budesonide-formoterol HFA 160 2 puff inhalation Q12H #10.2 grams 08/29/24 mcg-4.5 mcg/actuation aerosol inhaler pregabalin 25 mg capsule 25 mg PO Q8H #90 caps 10/09/24 acyclovir 800 mg tablet 800 mg PO BID fever blisters #60 11/02/24 tabs clopidogrel 75 mg tablet See Rx Instructions .Route 11/20/24 .COMPLEX #90 tabs hydrocodone 5 mg-acetaminophen 325 1 tab PO Q4-6H PRN pain #30 tabs 11/28/24 mg tablet lidocaine 5 % topical patch See Rx Instructions topical 12/03/24 .COMPLEX #15 ea Allergies Allergy/AdvReac Type Severity Reaction Status Date / Time amoxicillin Allergy Verified 11/28/24 14:42 codeine Allergy Verified 11/28/24 14:42 lisinopril Allergy Verified 11/28/24 14:42 phenazopyridine (From Allergy Verified 11/28/24 14:42 Pyridium) contrast dye Allergy Uncoded 11/28/24 14:42 FOR[facility]LY [facility] Disclaimer: The information contained in this section may have been updated after the patient was seen, as this information can be updated by other users. Medical History Shingles Hypercalcemia Acute low back pain Kidney stone Hypertension Hyperlipidemia Heart failure Heart attack Diabetes mellitus Depression CAD (coronary artery disease) Coronary artery disease involving coronary bypass graft Sleep apnea Arthritis Surgical History Hx of CABG H/O heart artery stent H/O lithotripsy History of shoulder surgery Family History Daughter Hyperlipidemia Hypertension Diabetes Social History Smoking Status: Never smoker second hand exposure: No alcohol intake: never current occupational status: retired Travel in the last 8 weeks: None household members: spouse housing: house marital status: Have you lived/traveled outside US in past 30 days?: No Contact w/someone who lives/traveled outside US past 30 days?: No Exposure to someone with infectious disease in past 14 days?: No Do you have a fever (greater than 100.4 F or 38 C)?: No Have you tested positive for COVID-19: No Exposed to someone with COVID-19 in past 14 days?: No Do you have a sore throat?: No Do you have a cough?: No Do you have any weakness?: No Do you have any diarrhea?: No Are you experiencing any unusual bleeding?: No Do you have any muscle aches/pain?: No Do you have any abdominal pain?: No Are you experiencing loss of taste or smell?: No Other Medical History Have you received the Pneumonia Vaccine: No ROS Obtained: Yes Systems reviewed as appropriate & no additional complaints except as documented per HPI Physical Exam General General appearance: alert and in no apparent distress Head Head exam: atraumatic and normocephalic Eye Eye exam: Present PERRL and EOMI ENT ENT exam: Present mucous membranes moist Neck Neck exam: Present normal inspection and full ROM Chest Chest inspection: Present symmetric chest wall rise and other (Well-healed sternotomy scar); Absent tenderness (Patient demonstrates to the left mid anterior chest wall when indicating where his pain is but there is no tenderness to palpation and no exterior evidence of trauma) Respiratory Respiratory exam: Present normal lung sounds bilaterally and other (Saturating 98% on room air); Absent respiratory distress, wheezes or stridor Cardiovascular Cardiovascular exam: Present regular rate, normal rhythm and systolic murmur Abdominal Exam Abdominal exam: Present soft; Absent distention or tenderness Extremities Exam Extremities exam: Present full ROM; Absent edema Back Exam Back exam: Present full ROM; Absent tenderness Neurological Exam Neurological exam: Present alert, oriented X3, CN II-XII intact and normal gait; Absent motor sensory deficit Psychiatric Psychiatric exam: Present normal affect and normal mood Skin Skin exam: Present warm and dry HEART Score HEART Score HEART Score assessment performed?: Yes History (anamnesis): Slightly suspicious ECG: Non-specific disturbance Age: >65 years Risk factors: Atherosclerosis history Troponin: </= normal limit HEART Score: 5 Critical Care Critical Care Time Critical Care Time: No Medical Decision Making Medical Records Medical records reviewed: Yes I reviewed the patient's medical records. [place] Inquiry Pt receiving controlled substance: No Vital Signs Vital Signs: 12/02/24 22:58 Temperature 98.1 F Temperature Source Oral Pulse Rate [Right] 80 Respiratory Rate 16 Blood Pressure [Right Arm] 143/76 H Blood Pressure Mean [Right Arm] 98 02 Sat by Pulse Oximetry 98 Oxygen Delivery Method Room Air Lab Data Labs: Lab Results 12/02/24 22:58: WBC 13.2 H, RBC 4.24 L, Hgb 14.6, Hct 42.7, MCV 100.7 H, MCH 34.4 H, MCHC 34.2, RDW 12.8, Plt Count 235, MPV 9.5, Neut % (Auto) 81.9 H, Lymph % (Auto) 9.6 L, [place] % (Auto) 6.7, Eos % (Auto) 1.1, Baso % (Auto) 0.3, Neut # (Auto) 10.8 H, Lymph # (Auto) 1.3, [place] # (Auto) 0.9, Eos # (Auto) 0.1, Baso # (Auto) 0.0, PT 10.9, INR 0.97, D-Dimer 0.45, Sodium 140, Potassium 4.3, Chloride 102, Carbon Dioxide 29, Anion Gap 13.3, BUN 29 H, Creatinine 1.00, Estimated Creat Clear 65, Estimated GFR 72, Est GFR ( Amer) 88, Glucose 177 H, Calcium 9.9, Total Bilirubin 0.6, AST 41, ALT 29, Alkaline Phosphatase 126, Troponin I < 0.01, Total Protein 6.8, Albumin 4.4, Globulin 2.4, Albumin/Globulin Ratio 1.8, Lipase 179 12/03/24 00:00: C-Reactive Protein < 0.3 12/02/24 22:58 12/02/24 22:58 Response Orders (Tests/Meds): ORDERS Category Date Time Status CT abdomen pelvis wo con Stat Cat Scan 12/02/24 23:[address] chest wo con Stat Cat Scan 12/02/24 23:08 Completed CBC w/Auto Diff [Complete Blood Count Auto Diff] Stat Lab 12/02/24 22:58 Completed CMP [Comprehensive Metabolic Panel] Stat Lab 12/02/24 22:58 Completed CRP [C-Reactive Protein] Stat Lab 12/03/24 00:00 Completed D-Dimer Stat Lab 12/02/24 22:58 Completed HIV Combo Stat Lab 12/02/24 22:58 Received Hepatitis C Ab Qual. W/ RFX Stat Lab 12/02/24 22:58 Received Lipase Stat Lab 12/02/24 22:58 Completed PT INR [Prothrombin Time INR] Stat Lab 12/02/24 22:58 Completed Trop I [Troponin I] Stat Lab 12/02/24 22:58 Completed Troponin I Q3H Lab 12/03/24 02:15 Ordered Troponin I Q3H Lab 12/03/24 05:15 Ordered MDM Narrative Medical Decision Narrative: In summary, this 79-year-old male with comorbidities described in the HPI presents to the emergency department today with left-sided chest pain 3 weeks after a fall. On initial evaluation patient is hemodynamically stable, afebrile, chest pain is not reproducible on exam. No external findings of trauma. Cardiopulmonary exam benign. Remainder of exam benign. Differential diagnosis includes but is not limited to rib fracture, muscle spasm, pericarditis, pericardial effusion, pneumothorax, hemothorax, costochondritis, I considered possibility of pancreatic injury though I have lower suspicion for this since patient has benign abdomen. I had also considered ACS, PE. Based on these concerns, I ordered serum labs, cardiac workup, D-dimer. I ordered noncontrasted CT imaging because patient has allergy including throat swelling and hives to contrast, however if his dimer is elevated I will premedicate and perform contrasted scans. ECG personally interpreted demonstrates normal sinus rhythm, rate 75, normal axis, normal [place] and QTc, right bundle branch block, no STEMI. ECG stable compared to the one performed in July 2024. Patient is resting relatively comfortable at this time and took oxycodone prior to arrival. No pain medications administered in the ER. Labs personally reviewed demonstrate mild leukocytosis nonspecific and nonactionable, no anemia, platelets normal, PT/INR normal, D-dimer normal at 0.45, CTA PE not indicated, PE excluded. Noncontrasted exams will be performed since I believe the risk of severe allergic reaction outweighs the benefit of using contrast at this time since patient is 3 weeks post initial injury. CMP with prerenal azotemia, patient is tolerating oral intake. Troponin additionally low less than 0.01 which is significantly reassuring since the patient's symptoms have been going on for 3 weeks and are unchanged at this time. Lipase normal at [address] reassuring [address] injury[address] CT chest personally interpreted does not demonstrate pericardial effusion, pneumothorax, hemothorax, I do appreciate abnormality/inflammation at the costochondral junction of rib 7. No obvious fracture. See radiology read for final interpretation. Radiology commented on possible nondisplaced 12th rib fracture as well as left basilar nodule. I called the reading radiologist and spoke with him by phone, he agrees that there is evidence of sclerosis and possible healing fracture of the anterior seventh rib, and his addendum also comments on the 8th and 9th possibly being affected as well. CT abdomen pelvis personally interpreted does not demonstrate acute traumatic injury, see radiology read for final interpretation. Findings including incidental findings have been discussed with the patient. Incentive spirometer for the patient was 2500. He is able to move excellent air without pain. He is also saturating 98% on room air and breathing comfortably. I believe patient will likely be able to discharge, however since he has had persistent pain over the last 3 weeks, I want him to have outpatient follow-up available so I discussed this case with [facility] and spoke with Dr. Laguna initially. After reviewing the patient's complaints and findings, she reached out to the thoracic team who told her with his good progress healing at this time he does not require outpatient follow-up with their service and that PCP follow-up is adequate. She passed along this information to me. I appreciate their recommendations. Patient already has a prescription for hydrocodone acetaminophen provided by Dr. Cui recently. He was given instructions on [id number] medication use as well as to only use the controlled substances if needed for severe breakthrough pain. I also prescribed lidocaine patches for topical treatment and gave him instructions on use of these. He had been provided incentive spirometer and given instructions on regular use of this as well. Patient was given instructions on symptomatic management, follow up instructions, and return precautions for the emergency department. Patient indicated understanding and was discharged in stable condition.
--- NOTE | 2024-12-02 23:08 | CT_ITS ---
PROCEDURE INFORMATION: Exam: CT Chest Without Contrast; Diagnostic Exam date and time: 12/02/2024 11:41 PM Age: 79 years old Clinical indication: Pain; Left-sided; Additional info: Fall 3w ago L cp persistent worsening TECHNIQUE: Imaging protocol: Diagnostic computed tomography of the chest without contrast. Radiation optimization: All CT scans at this facility use at least one of these dose optimization techniques: automated exposure control; mA and/or kV adjustment per patient size (includes targeted exams where dose is matched to clinical indication); or iterative reconstruction. COMPARISON: CR XR CHEST 2V 08/23/2024 11:31 AM FINDINGS: Lungs: 0.3 cm left basilar peripheral nodule. Pleural spaces: Unremarkable. No pneumothorax. No pleural effusion. Heart: Unremarkable. No cardiomegaly. No pericardial effusion. Coronary arteries: Atherosclerotic calcification of coronary arteries. Lymph nodes: Unremarkable. No enlarged lymph nodes. Vasculature: Atherosclerotic calcification of thoracic aorta without aneurysm. Bones/joints: Subtle cortical irregularity and lucency in left posteromedial 12th rib near costovertebral joint (series 2, image 78). Soft tissues: Unremarkable. IMPRESSION: 1. Possible nondisplaced left 12th posteromedial rib. No pneumothorax identified. 2. Left basilar nodule. [place] society recommendation for pulmonary nodule follow-up: Single solid nodule <6 mm (<100 mm3) low-risk patients: no routine follow-up required high-risk patients: optional CT at 12 months
[2024-12-02 23:16] LABS: Basophils % 0.3 % (0.1-2.0); Eosinophils # 0.1 K/mm3 (0.0-0.4); Eosinophils % 1.1 % (0.1-12.0); Hematocrit 42.7 % (42.0-52.0); Hemoglobin 14.6 g/dL (14.1-18.0); Lymphocytes # 1.3 K/mm3 (0.7-4.5); Lymphocytes % 9.6 % (10-50); Mean Corpuscular HGB Conc 34.2 g/dL (31.8-35.4); Mean Corpuscular Hemoglobin 34.4 pg (27.0-31.2); Mean Corpuscular Volume 100.7 fl (80-94); Mean Platelet Volume 9.5 fl (7.4-10.4); Monocytes # 0.9 K/mm3 (0.1-1.0); Monocytes % 6.7 % (1.7-9.3); Neutrophils # 10.8 K/mm3 (1.8-7.8); Neutrophils % 81.9 % (37.0-80.0); Platelet Count 235 K/mm3 (142-424); Red Blood Count 4.24 M/mm3 (4.60-6.20); Red Cell Distribution Width 12.8 % (11.5-17.5); White Blood Count 13.2 K/mm3 (4.8-10.8)
[2024-12-02 23:21] LABS: Albumin Level 4.4 g/dl (3.5-5.0); Chloride 102 mmol/L (98-107); Potassium 4.3 mmoL/L (3.5-5.1); Sodium 140 mmol/L (136-145)
[2024-12-02 23:23] LABS: Blood Urea Nitrogen 29 mg/dl (9-20); INR 0.97 (0.9-1.1); Prothrombin Time 10.9 seconds (10.1-12.5)
[2024-12-02 23:24] LABS: Alanine Aminotransferase 29 U/L (12-78); Albumin/Globulin Ratio 1.8 (1.1-1.8); Alkaline Phosphatase 126 U/L (38-126); Anion Gap 13.3 mEq/L (5-15); Aspartate Amino Transferase 41 U/L (17-59); Bilirubin,Total 0.6 mg/dl (0.2-1.3); Calcium 9.9 mg/dl (8.4-10.2); Carbon Dioxide 29 mmol/L (22.0-30.0); Creatinine Clearance Estimated 65 mL/min (50-200); Estimated Glomerular Filt Rate 72 ml/min (>60); GFR (African American) 88 ML/MIN (>60); Globulin 2.4 g/dL (1.3-3.2); Glucose 177 mg/dl (74-100); Total Protein,Serum 6.8 g/dl (6.3-8.2)
[2024-12-02 23:29] LABS: D-Dimer 0.45 ug/mL (0.0-0.5)
[2024-12-02 23:36] LABS: Lipase 179 U/L (23-300); Troponin I < 0.01 ng/ml (0.00-0.034)
--- NOTE | 2024-12-02 23:36 | CT_ITS ---
PROCEDURE INFORMATION: Exam: CT Abdomen And Pelvis Without Contrast Exam date and time: 12/02/2024 11:44 PM Age: 79 years old Clinical indication: Injury or trauma; Fall; Blunt; Generalized; Additional info: Fall 3w ago L cp persistent TECHNIQUE: Imaging protocol: Computed tomography of the abdomen and pelvis without contrast. Radiation optimization: All CT scans at this facility use at least one of these dose optimization techniques: automated exposure control; mA and/or kV adjustment per patient size (includes targeted exams where dose is matched to clinical indication); or iterative reconstruction. COMPARISON: CT CHEST WO CON 12/02/2024 11:41 PM FINDINGS: Liver: Normal. No mass. Gallbladder and biliary ducts: Normal. No calcified stones. No ductal dilation. Pancreas: Normal. No ductal dilation. Spleen: Normal. No splenomegaly. Adrenal glands: Normal. No mass. Kidneys and ureters: Bilateral nonobstructive renal calculi measuring up to 0.4 cm in right kidney. Stomach and bowel: Sigmoid colonic diverticula without pericolonic fat stranding. No obstruction. No mucosal thickening. Appendix: No evidence of appendicitis. Intraperitoneal space: Unremarkable. No free air. No significant fluid collection. Vasculature: Atherosclerotic calcification of aortoiliac arteries without aneurysm. Lymph nodes: Unremarkable. No enlarged lymph nodes. Urinary bladder: Unremarkable as visualized. Reproductive: Unremarkable as visualized. Bones/joints: Unremarkable. No acute fracture. Soft tissues: Unremarkable. IMPRESSION: 1. No acute findings. 2. Nonobstructive nephrolithiasis. 3. Colonic diverticulosis.
[2024-12-03 00:26] LABS: C-Reactive Protein < 0.3 mg/L (0-4)
--- NOTE | 2024-12-03 00:45 | PC.NURSE ---
pt brought an incentive spirometer to bedside, this RN provided education and observed patient demonstration. pt was able to hit 2000 multiple times without pain
[2024-12-03 01:27] VITALS: BP 110/52; PULSE 71; RESP 16; TEMP 36.6; O2SAT 94
[2024-12-03 01:45] LABS: HIV Combo NEGATIVE (Negative); Hepatitis C Ab Qual. W/ RFX NEGATIVE (Negative)
== END 2024-12-03 01:30 | disposition home or self-care (01) ==
PROVIDERS: Emergency Provider Emergency Medicine; PCP Family Medicine
DX: S22.32XA Fracture of one rib, left side, initial encounter for closed fracture (principal); R91.1 Solitary pulmonary nodule; R07.9 Chest pain, unspecified; W01.0XXA Fall on same level from slipping, tripping and stumbling without subsequent striking against object, initial encounter; Y93.89 Activity, other specified; Y92.008 Other place in unspecified non-institutional (private) residence as the place of occurrence of the external cause
CPT/HCPCS: 71250; 74176; 80053; 83690; 84484; 85025; 85378; 85610; 86140; 86803; 87389; 93005; 99284

== ENCOUNTER 2025-01-08 10:40 | Outpatient (CLI) | payer MEDICARE, SELFPAY ==
[2025-01-08 16:34] LABS: Basophils # 0.1 K/mm3 (0-0.2); Basophils % 0.6 % (0.1-2.0); Eosinophils # 0.1 Kmm3 (0.0-0.4); Eosinophils % 1.2 % (0.1-12.0); Hematocrit 43.1 % (42.0-52.0); Hemoglobin 14.6 g/dL (14.1-18.0); Immature Granulocytes # 0.02 10^3uL; Immature Granulocytes % 0.2 %; Lymphocytes # 1.5 K/mm3 (0.7-4.5); Lymphocytes % 18.2 % (10-50); Mean Corpuscular HGB Conc 33.9 g/dL (31.8-35.4); Mean Corpuscular Hemoglobin 34.7 pg (27.0-31.2); Mean Corpuscular Volume 102.4 fl (80-94); Mean Platelet Volume 9.8 fl (7.4-10.4); Monocytes # 0.8 K/mm3 (0.1-1.0); Monocytes % 9.5 % (1.7-9.3); Neutrophils # 5.6 K/mm3 (1.8-7.8); Neutrophils % 70.3 % (37.0-80.0); Nucleated Red Blood Cells # 0 10^3/uL; Nucleated Red Blood Cells % 0 %; Platelet Count 232 K/mm3 (142-424); Red Blood Count 4.21 M/mm3 (4.60-6.20); Red Cell Distribution Width 12.3 % (11.5-17.5); Red Cell Distribution Width-SD 45.7 fL
[2025-01-08 18:35] LABS: 25-OH Vitamin D, Total 50.2 ng/mL (30-100)
[2025-01-08 18:45] LABS: Hemoglobin A1C 6.2 % (4.0-6.0)
[2025-01-08 18:50] LABS: Thyroid Stimulating Hormone 1.15 uIU/mL (0.465-4.68)
[2025-01-08 19:09] LABS: Vitamin B12 201 pg/mL (239-931)
== END 2025-01-08 23:59 | disposition home or self-care (01) ==
LOC: LAB.DROPOF 01-09 12:52
PROVIDERS: PCP Nurse Practitioner Family; Visit Provider Nurse Practitioner Family
DX: E11.9 Type 2 diabetes mellitus without complications (principal); R53.83 Other fatigue; Z68.25 Body mass index [BMI] 25.0-25.9, adult; E66.9 Obesity, unspecified
CPT/HCPCS: 82306; 82607; 83036; 84443; 85025

== ENCOUNTER 2025-06-27 09:00 | Outpatient (CLI) | payer MEDICARE, SELFPAY ==
[2025-06-27 19:44] LABS: Hematocrit 39.3 % (42.0-52.0); Hemoglobin 13.0 g/dL (14.1-18.0); Immature Granulocytes % 0.3 %; Mean Corpuscular HGB Conc 33.1 g/dL (31.8-35.4); Mean Corpuscular Hemoglobin 34.0 pg (27.0-31.2); Mean Corpuscular Volume 102.9 fl (80-94); Nucleated Red Blood Cells % 0 %; Platelet Count 199 K/mm3 (142-424); Red Blood Count 3.82 M/mm3 (4.60-6.20); Red Cell Distribution Width-SD 46.1 fL; White Blood Count 7.7 K/mm3 (4.8-10.8)
[2025-06-27 20:38] LABS: Hemoglobin A1C 5.8 % (4.0-6.0)
[2025-06-27 21:46] LABS: Alanine Aminotransferase 24 U/L (12-78); Albumin Level 3.2 g/dl (3.5-5.0); Albumin/Globulin Ratio 1.0 (1.1-1.8); Alkaline Phosphatase 113 U/L (38-126); Anion Gap 12.3 mEq/L (5-15); Aspartate Amino Transferase 32 U/L (17-59); Bilirubin,Total 0.7 mg/dl (0.2-1.3); Blood Urea Nitrogen 17 mg/dl (9-20); Calcium 9.4 mg/dl (8.4-10.2); Carbon Dioxide 26 mmol/L (22.0-30.0); Chloride 102 mmol/L (98-107); Cholesterol 93 mg/dl (140-200); Creatinine,Serum 0.90 mg/dl (0.66-1.25); Estimated Glomerular Filt Rate 82 ml/min (>60); GFR (African American) 99 ML/MIN (>60); Globulin 3.3 g/dL (1.3-3.2); Glucose 82 mg/dl (74-100); HDL Cholesterol 28 mg/dl (40-60); Potassium 4.3 mmoL/L (3.5-5.1); Sodium 136 mmol/L (136-145); Total Protein,Serum 6.5 g/dl (6.3-8.2); Triglycerides 168 mg/dl (30-150)
[2025-06-27 22:35] LABS: Vitamin B12 206 pg/mL (239-931)
--- OUTSIDE RECORDS SUMMARY | 2025-06-28 14:11 | XMS_ITS | Referral Summary ---
Author Organization [email or web address] ([place], [place], [place], [place]) Address [address] [place] [address] Care Team Providers Care Account Review Specialist Name Role Phone Toan Bailey MD Primary Care Provider [phone] Allergies Active Allergy Reactions Criticality Noted Date Comments Amoxicillin 07/01/2022 Codeine 07/01/2022 Iodinated Contrast Media 07/01/2022 1Replaced free text allergy Lisinopril 07/01/2022 Phenazopyridine 07/01/2022 2Replaced free text allergy Medications valsartan (DIOVAN) 80 MG tablet 1 tablet (80 mg total) daily. 10/19/2021 Active hydroCHLOROthia zide (HYDRODIURIL) 25 MG tablet 1 tablet (25 mg total) as needed. 10/19/2021 Active tamsulosin (FLOMAX) 0.4 mg Cap 24 hr capsule 1 tablet daily. 10/18/2021 Active nitroglycerin (NITROSTAT) 0.[address] 1 tablet (0.4 mg total) under the tongue every 5 (five) minutes if needed for Chest pain Maximum dose 3 pills.. 10/19/2021 Active iron,carb/vit C/vit B12/folic (IRON 100 PLUS ORAL) 1 tablet daily. 10/18/2021 Active polycarbophil (FIBERCON) 625 mg tablet 1 tablet (625 mg total) daily. 10/18/2021 Active cetirizine 10 mg Cap 1 tablet daily. 10/18/2021 Active cyanocobalamin (VITAMIN B-12) [address] 1 tablet (500 mcg total) under the tongue 3 (three) times daily. 10/18/2021 Active atorvastatin (LIPITOR) 80 MG tablet Take 1 tablet (80 mg total) by mouth daily. Active glimepiride (AMARYL) 1 MG tablet Take 1 tablet (1 mg total) by mouth every morning before breakfast. Active clopidogreL (Plavix) 75 mg tablet Take 1 tablet (75 mg total) by mouth daily. 90 tablet 1 03/12/2023 Active metoprolol tartrate (LOPRESSOR) 25 MG tablet Take 1 tablet (25 mg total) by mouth 2 (two) times daily Take one half tablet twice daily . 180 tablet 1 03/12/2023 Active Active Problems Problem Noted Date Diagnosed Date Arthritis 07/01/2022 Depression 07/01/2022 Diabetes mellitus, type II 07/01/2022 Heart failure 07/01/2022 Overview (07/08/2022): HF with mildly reduced EF 45% by echocardiogram 04/2022. Arteriosclerosis of coronary artery 03/26/2021 Overview (07/08/2022): 04/2022: Recurrent stenosis and PCI of saphenous vein graft History of CABG Hyperlipidemia 03/26/2021 Hypertension 03/26/2021 Social History Tobacco Use Types Packs/Day Years Used Date Smoking Tobacco: Former Cigarettes Smokeless Tobacco: Never Tobacco Cessation:Counseling Given: Not Answered Food Insecurity Answer Date Recorded Food run out past 12 months Not on file 08/30 Food did not last past 12 months Not on file 09/09/2023 Employment Answer Date Recorded Help finding and keeping a job Not on file 0 09/09/2023 Family and Community Support Answer Maykel e Recorded Help with Day to Day Activities Not on file 09/09/2023 Feeling Lonely or Isolated Not on file 09/09 Educational Attainment Answer Date Elan rded Speak language other than Bulgarian at home Not on file 09/09/2023 Want help with school or training Not on file 09/09/2023 Substance Use Answer Date Recorded Used prescription meds for non-medical reasons N ot on file 09/09/2023 Used illegal drugs past 12 months Not on file 09/09/2023 Sex and Gender Information Value Date Recorded Sex Assigned at Not on file Legal Sex Male 5:25 PM CDT Gender Identity Not on file Sexual Orientation Not on file Last Filed Vital Signs Vital Sign Reading Time Taken Comments Blood Pressure 126/72 03/12/2023 11:30 AM EDT Pulse 66 03/12/2023 11:30 AM EDT Temperature - - Respiratory Rate - - Oxygen Saturation - - Inhaled Oxygen Concentration - - Weight 76.4 kg (168 lb 6.4 oz) 03/12/2023 11:30 AM EDT Height 175.3 cm (5' 9 ) 03/12/2023 11:30 AM EDT Body Mass Index 24.87 03/12/2023 11:30 AM EDT Plan of Treatment Not on file Insurance [employer] MEDICARE HMO Care Teams Account Review Specialist Relationship Specialty Start Date End Date Toan Bailey MD [address] [phone] PCP - General Family Medicine 05/27/22
--- OUTSIDE RECORDS SUMMARY | 2025-06-28 14:11 | XMS_ITS | Encounter Summary ---
Author Organization [employer] ([place], [place], [place], [place]) Address [address] [place] [address] Care Team Providers Care Glass Setter Name Role Phone Toan Bailey MD Primary Care Provider [phone] Encounter Details Date Type Department Care Team (Late st Contact Info) Description 08/28/2020 Transcribed Document [facility] [place] [facility] [place] [address] ProviderMohan MD [address] [place] [id number] Social History Tobacco Use Types Packs/Day Years Used Date Smoking Tobacco: Never Assessed Sex and Gender Information Value Date Recorded Sex Assigned at Not on file Legal Sex Male 5:25 PM CDT Gender Identity Not on file Sexual Orientation Not on file documented as of this encounter Miscellaneous Notes * Cerner Conversion Note - Historical ProviderMD - 08/28/2020 12:23 PM 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 Vital Signs ED Entered On: 08/28/2020 13:00 EST Performed On: 08/28/2020 12:59 EST by Kylie Turner RN Vital Signs ED Temperature Mode : Fahrenheit Systolic Blood Pressure, Supine : 141 mmHg Diastolic Blood Pressure, Supine : 83 mmHg Pulse Supine : 80 bpm Systolic B/P, Sitting : 138 mmHg Diastolic B/P, Sitting : 81 mmHg Pulse Sitting : 81 bpm Systolic Blood Pressure, Standing : 144 mmHg Diastolic Blood Pressure, Standing : 85 mmHg Pulse Standing : 83 bpm Kylie Turner RN - 08/28/2020 12:59 EST documented in this encounter Plan of Treatment Not on file documented as of this encounter Visit Diagnoses Not on filedocumented in this encounter Care Teams Glass Setter Relationship Specialty Start Date End Date Toan Bailey MD [facility] [address] [address] PCP - General Family Medicine 05/27/22 documented as of this encounter
--- OUTSIDE RECORDS SUMMARY | 2025-06-28 14:11 | XMS_ITS | Encounter Summary ---
Author Organization [employer] ([place], [place], [place], [place]) Address [address] [place] [address] Care Team Providers Care Engraving Supervisor Name Role Phone Toan Bailey MD Primary Care Provider [phone] Encounter Details Date Type Department Care Team (Late st Contact Info) Description 08/28/2020 Transcribed Document [facility] [place] [facility] [place] [address] ProviderMohan MD [address] [place] [address] Social History Tobacco Use Types Packs/Day Years Used Date Smoking Tobacco: Never Assessed Sex and Gender Information Value Date Recorded Sex Assigned at Not on file Legal Sex Male 5:25 PM CDT Gender Identity Not on file Sexual Orientation Not on file documented as of this encounter Miscellaneous Notes * Cerner Conversion Note - Historical ProviderMD - 08/28/2020 11:51 AM DOOR 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 Broset Violence Assessment Entered On: 08/28/2020 12:03 EST Performed On: 08/28/2020 12:01 EST by Kylie Turner RN Broset Violence Assessment Broset Violence Checklist of Symptoms : None Broset Violence Symptoms Subtotal : 0 Broset Violence Symptoms Indicator : Low risk (0) Kylie Turner RN - 08/28/2020 12:01 EST Electronically signed by Ties[facility] Conversion Sr Vice President Cerner at 12/14/2022 11:33 AM CDT documented in this encounter Plan of Treatment Not on file documented as of this encounter Visit Diagnoses Not on filedocumented in this encounter Care Teams Engraving Supervisor Relationship Specialty Start Date End Date Toan Bailey MD [address] [place] [address] [place] [address] PCP - General Family Medicine 05/27/22 documented as of this encounter
--- OUTSIDE RECORDS SUMMARY | 2025-06-28 14:11 | XMS_ITS | Encounter Summary ---
Author Organization [employer] ([place], [place], [place], [place]) Address [address] [place] [address] Care Team Providers Care Professional Development Director Name Role Phone Toan Bailey MD Primary Care Provider [phone] Encounter Details Date Type Department Care Team (Late st Contact Info) Description 08/28/2020 Transcribed Document [facility] [place] [facility] [place] [address] ProviderMohan MD [address] [place] [address] Social History Tobacco Use Types Packs/Day Years Used Date Smoking Tobacco: Never Assessed Sex and Gender Information Value Date Recorded Sex Assigned at Not on file Legal Sex Male 5:25 PM CDT Gender Identity Not on file Sexual Orientation Not on file documented as of this encounter Miscellaneous Notes * Cerner Conversion Note - Mohan Dalal MD - 08/28/2020 3:28 [address]NICIAN [facility] [place] [address] CECILIA IBANEZ :1945 Visit Time:08/28/2020 Your Visit Summary Your Care Team Primary Provider: ODIN JAFFE Secondary Provider: Your Diagnosis Dizziness Near syncope Syncope/Near syncope Medical Information You may obtain a copy of your Emergency Department visit from Medical Records by calling the hospital phone number listed above and asking to be directed to the Medical Records Department. If you had special tests, such as EKG???s or X-rays, the interpretation of your tests given to you by the Emergency Department Physician is a preliminary report. Some fractures and illnesses fail to show up on preliminary tests. These will be reviewed again and we will call you if there are any new suggestions. If your symptoms continue notify your physician. After you leave, you should follow the instructions provided. What to do next Follow-Up Appointments Follow Up with TOAN BAILEY When Within 2 to 3 days Where: [address] [place] [address]- Business (1) Allergies Contrast Dye Pyridium amoxicillin codeine lisinopril Immunizations This Visit No Immunizations Found Medications What How Much When Instructions Next Dose acetaminophen (Tylenol 325 mg oral tablet) 2 Tablet(s) Oral Every 4 Hours as needed for Pain (Mild 1-3) aspirin (Fasprin 81 mg oral tablet, disintegrating) 1 Tablet(s) Oral Every Day atorvastatin (atorvastatin 80 mg oral tablet) 1 Tablet(s) Oral At Bedtime clopidogrel (Plavix 75 mg oral tablet) 1 Tablet(s) Oral Every Day Duration: 30 Day(s) hydrochlorothiazide (hydrochlorothiazide 25 mg oral tablet) 1 Tablet(s) Oral Every Day metformin (metformin 500 mg oral tablet) 1 Tablet(s) Oral Two Times A Day metoprolol (Metoprolol Tartrate 25 mg oral tablet) 1 Tablet(s) Oral Two Times A Day nitroglycerin (Nitrostat 0.4 mg sublingual tablet) 1 Tablet(s) SubLINgual Every 5 minutes as needed for Chest Pain ranolazine (Ranexa 500 mg oral tablet, extended release) 1 Tablet(s) Oral Two Times A Day Duration: 30 Day(s) sertraline (Zoloft 100 mg oral tablet) 1.5 Tablet(s) Oral Every Day traZODone (traZODone 50 mg oral tablet) 1 Tablet(s) Oral At Bedtime The home medications listed are only as accurate as the information you provided. Please continue taking all of your medications prescribed by your Primary Care Provider unless specifically told to change or discontinue the medication. Please direct any questions regarding your home medications to your Primary Care Provider. Take your medications faithfully. Do NOT skip medication. Do NOT stop taking medications without the direction of a physician. Carry a list of your medications with you at all times, and take this medication list with you to your first follow up visit. Report any side effects. Avoid herbal remedies unless discussed with your physician. As part of your treatment plan, your physician may have prescribed a limited course of a controlled substance. This medication may be given to help people with moderate or severe pain or for other medical conditions, but there are risks involved with treatment. Common side effects may include nausea, constipation, drowsiness, sweating, itching, dry mouth, and rash. More serious side effects may include cognitive and motor impairment, like problems with thinking, concentrating, alertness, and movement (e.g. slowed reflexes), and driving and operating heavy machinery can be dangerous. It is important for you to talk to your physician if you have these side effects or questions. These controlled substances can produce physical dependence and be habit-forming if taken for an extended period of time, which means that the body has gotten used to them and may experience withdrawal symptoms if they are abruptly stopped. Withdrawal symptoms can include runny nose, sweating, goose bumps, diarrhea, abdominal cramping, rapid heartbeat, difficulty sleeping, and nervousness. Please dispose of unused and medications per pharmacy guidance. Test Results Laboratory or Other Results This Visit (last charted value for your 08/28/2020 visit) Hematology 08/28/2020 12:35 PM WBC: 7.4 K/uL -- Normal range between ( 3.6 and 9.5 ) RBC: 4.37 Million/uL -- Normal range between ( 4.20 and 5.70 ) Hct: 42.8 % -- Normal range between ( 40.1 and 51.0 ) Hgb: 15.1 g/dL -- Normal range between ( 13.5 and 17.3 ) Platelet Count: 227 K/uL -- Normal range between ( 163 and 369 ) MCH: 34.6 pg -- Normal range between ( 25.6 and 32.2 ) MCHC: 35.3 Gram/dL -- Normal range between ( 32.2 and 36.5 ) MCV: 97.9 fL -- Normal range between ( 79.0 and 94.8 ) Slide Review: No Eos %: 0.4 % -- Normal range between ( 0.0 and 7.0 ) Dolores #: 0.64 K/uL -- Normal range between ( 0.16 and 1.00 ) Eos #: 0.03 x10(3)/uL -- Normal range between ( 0.00 and 0.80 ) Dolores %: 8.6 % -- Normal range between ( 3.0 and 9.0 ) Baso %: 0.4 % -- Normal range between ( 0.0 and 1.5 ) Baso #: 0.03 x10(3)/uL -- Normal range between ( 0.00 and 0.20 ) RDW: 11.6 % -- Normal range between ( 11.7 and 14.9 ) Neut %: 73.4 % -- Normal range between ( 34.0 and 71.0 ) Neut #: 5.46 K/uL -- Normal range between ( 1.56 and 6.13 ) Lymph %: 16.8 % -- Normal range between ( 19.3 and 53.1 ) Lymph #: 1.25 x10(3)/uL -- Normal range between ( 1.00 and 3.90 ) MPV: 9.3 fL -- Normal range between ( 9.4 and 12.4 ) IG#: 0.03 x10(3)/uL -- Normal range between ( 0.00 and 0.05 ) IG%: 0.40 % -- Normal range between ( 0.00 and 0.60 ) General Chemistry 08/28/2020 12:35 PM Creatinine Level: 1.30 mg/dL -- Normal range between ( 0.70 and 1.30 ) Sodium Level: 140 mmol/L -- Normal range between ( 136 and 146 ) Potassium Level: 3.6 mmol/L -- Normal range between ( 3.5 and 5.1 ) Chloride Level: 107 mmol/L -- Normal range between ( 102 and 112 ) Carbon Dioxide Level: 26 mmol/L -- Normal range between ( 21 and 32 ) Anion Gap: 11 -- Normal range between ( 9 and 20 ) Bilirubin Total: 0.5 mg/dL -- Normal range between ( 0.2 and 1.2 ) A/G Ratio: 1.2 -- Normal range between ( 1.1 and 2.5 ) ALT: 39 Units/Liter -- Normal range between ( 16 and 61 ) AST: 25 Units/Liter -- Normal range between ( 5 and 37 ) Globulin: 3.2 Gram/dL -- Normal range between ( 1.5 and 4.5 ) Alk Phos: 109 Units/Liter -- Normal range between ( 27 and 136 ) Bun/Creatinine: 13.8 -- Normal range between ( 8.0 and 20.0 ) Calcium Level: 9.6 mg/dL -- Normal range between ( 8.4 and 10.1 ) eGFR : >60 mL/min/1.73m2 eGFR NonAfrican: 54 mL/min/1.73m2 Glucose Level: 105 mg/dL -- Normal range between ( 74 and 106 ) Magnesium Level: 2.0 mg/dL -- Normal range between ( 1.5 and 2.4 ) Blood Urea Nitrogen: 18 mg/dL -- Normal range between ( 7 and 22 ) Phosphorus: 4.0 mg/dL -- Normal range between ( 2.5 and 4.9 ) Protein Total: 6.9 Gram/dL -- Normal range between ( 6.4 and 8.2 ) Albumin Level: 3.7 Gram/dL -- Normal range between ( 3.4 and 5.0 ) Cardiac Specific Markers 08/28/2020 12:35 PM Troponin I Ultra: <0.015 ng/mL -- Normal range between ( 0.015 and 0.045 ) Computed Tomography 08/28/2020 12:[address] Head WO: CT Head WO Education Materials Near-Syncope Near-syncope is when you suddenly feel like you might pass out (faint), but you do not actually lose consciousness. This may also be referred to as presyncope. During an episode of near-syncope, you may: ??? Feel dizzy, weak, or light-headed. ??? Feel nauseous. ??? See all white or all black in your field of vision, or see spots. ??? Have cold, clammy skin. This condition is caused by a sudden decrease in blood flow to the brain. This decrease can result from various causes, but most of those causes are not dangerous. However, near-syncope may be a sign of a serious medical problem, so it is important to seek medical care. Follow these instructions at home: Medicines ??? Take onfk-zsi-ngctaxc and prescription medicines only as told by your health care provider. ??? If you are taking blood pressure or heart medicine, get up slowly and take several minutes to sit and then stand. This can reduce dizziness. General instructions ??? Pay attention to any changes in your symptoms. ??? Talk with your health care provider about your symptoms. You may need to have testing to understand the cause of your near-syncope. ??? If you start to feel like you might faint, lie down right away and raise (elevate) your feet above the level of your heart. Breathe deeply and steadily. Wait until all of the symptoms have passed. ??? Have someone stay with you until you feel stable. ??? Do not drive, use machinery, or play sports until your health care provider says it is okay. ??? Drink enough fluid to keep your urine pale yellow. ??? Keep all follow-up visits as told by your health care provider. This is important. Get help right away if you: ??? Have a seizure. ??? Have unusual pain in your chest, abdomen, or back. ??? Faint once or repeatedly. ??? Have a severe headache. ??? Are bleeding from your mouth or rectum, or you have black or tarry stool. ??? Have a very fast or irregular heartbeat (palpitations). ??? Are confused. ??? Have trouble walking. ??? Have severe weakness. ??? Have vision problems. These symptoms may represent a serious problem that is an emergency. Do not wait to see if your symptoms will go away. Get medical help right away. Call your local emergency services (911 in the [place] Do not drive yourself to the hospital. Summary ??? Near-syncope is when you suddenly feel like you might pass out (faint), but you do not actually lose consciousness. ??? This condition is caused by a sudden decrease in blood flow to the brain. This decrease can result from various causes, but most of those causes are not dangerous. ??? Near-syncope may be a sign of a serious medical problem, so it is important to seek medical care. This information is not intended to replace advice given to you by your health care provider. Make sure you discuss any questions you have with your health care provider. Document Released: 08/16/2006 Document Revised: 12/08/2019 Document Reviewed: 07/05/2019 Elsevier Patient Education ?? 2020 Elsevier Inc. Emergency Awareness and Preventative Care STROKE is an EMERGENCY Every Minute Counts Act FAST and Check for these signs: FACE Does the face look uneven? ARM Does one arm drift down? SPEECH Does their speech sound strange? TIME Call at any sign of stroke Stroke Risk Factors Atrial Fibrillation (irregular heartbeat) Diabetes Family history of stroke Heart Disease Heavy alcohol use High Blood Pressure High Cholesterol Physical inactivity and obesity Smoking Cigarette Smoking The facts are clear, cigarette smoking will shorten your life. Smoking can cause many illnesses along the way. As a healthcare provider, we recommend that you stop smoking. Assistance with quitting is available by contacting 5-742-IVDBNOW. This is a free resource providing counseling, support, and referral. Or you may contact your personal physician. [place] Suicide Prevention Lifeline: The National Suicide Prevention Lifeline is a national network of local crisis centers that provides free and confidential emotional support to people in suicidal crisis or emotional distress 24 hours a day, 7 days a week. Don't Wait! Stop a Heart Attack Before it Starts What is a heart attack? A heart attack is damage or to a part of the heart from severely decreased or lack of blood flow to the heart. Over time, arteries can become narrow from the buildup of fat and cholesterol, which is called plaque. The plaque can rupture causing a blood clot to form. When the blood clot forms, the artery can become severely narrowed or completely blocked, causing a heart attack. Heart attack is the leading cause of in the [place]. 85% of muscle damage occurs within the first 2 hours. Delay in the recognition of heart attack symptoms increases the chances of . Know the early symptoms of a heart attack: Nausea Feeling of fullness in chest Jaw Pain Pain that travels down one or both arms Fatigue/being tired Anxiety Back Pain Chest pressure, squeezing, or discomfort Shortness of breath Sweating, or a cold sweat Feeling of impending doom There are unusual signs of a heart attack, too! Women, the elderly, and diabetics may present with atypical symptoms: Fainting/dizziness Weakness Confusion Risk Factors for a Heart Attack Some heart disease risk factors, such as age and family history, cannot be changed. Others, like smoking and lack of exercise, can be changed. Smoking High Cholesterol High Blood Pressure Family History Obesity Age Gender (Males are at higher risk) Lack of Exercise Diabetes Diet Stress Excessive Alcohol Intake If you or someone you know is experiencing the signs and symptoms of a heart attack, DON???T DELAY. Call immediately and seek help. If someone collapses, perform CPR! Do not attempt to drive if you are having symptoms of heart attack. Hands-Only CPR Why Hands-Only CPR? Hands-Only CPR has been shown to be as effective as conventional CPR for cardiac arrests that occur outside of a hospital. Survival depends on immediately receiving CPR from someone nearby. How do you perform Hands-Only CPR? There are two easy steps: Call 9-1-1 if you see a teen or adult collapse Push hard and fast in the center of the chest at a beat of 100 beats per minute. Save a life! 4 WAYS TO GET AHEAD OF SEPSIS SEPSIS is a MEDICAL EMERGENCY. Time matters! Infections put you and your family at risk for a life-threatening condition called sepsis. Sepsis is the body's extreme response to an infection. It is life-threatening, and without timely treatment, sepsis can rapidly lead to tissue damage, organ failure, and . Sepsis happens when an infection you already have-in your skin, lungs, urinary tract or somewhere else-triggers a chain reaction throughout your body. 1 PREVENT INFECTIONS Take good care of chronic conditions. Talk to your doctor about getting the recommended vaccines. 2 PRACTICE GOOD HYGIENE Wash your hands frequently. Keep cuts or open sores clean and covered until they are healed. 3 KNOW THE SYMPTOMS Confusion or disorientation Shortness of breath High heart rate Fever, shivering, or feeling very cold Extreme pain or discomfort Clammy or sweaty skin 4 ACT FAST Get medical care IMMEDIATELY if you suspect sepsis or if you have an infection that is not getting better or is getting worse. To learn more about sepsis and how to prevent infections, visit www.cdc.gov/sepsis. The examination and treatment you have received in the Emergency Department has been done to provide an appropriate evaluation and stabilizing treatment on an emergency basis only. Given the limited resources, it is not meant to be a substitute for complete medical care. The follow-up doctor you named will receive a copy of your records and all test reports. IT IS IMPORTANT THAT YOU SCHEDULE A FOLLOW-UP APPOINTMENT AND ARE RE-EVALUATED. You should report any new complaints, symptoms, or remaining problems at that time. IT IS IMPOSSIBLE FOR THE EMERGENCY DEPARTMENT TO RECOGNIZE AND TREAT ALL ELEMENTS OF INJURY OR ILLNESS IN A SINGLE VISIT. If you have been referred to a specialist physician, it means that we believe you may have a condition that requires the expertise of a specialist. These physicians work in partnership with the hospital and have agreed to see referred patients in their office for further evaluation. KEEP IN MIND THAT THE SPECIALIST HAS HIS/HER OWN OFFICE POLICIES WHICH MAY REQUIRE PROPER INSURANCE OR PAYMENT UP FRONT BEFORE THE SPECIALIST WILL SEE YOU. It is your responsibility to call the specialist physician to make an appointment. We do not have the ability to refer patients to specialists/physicians that work with specific insurance companies. Please be advised that all financial charges or billing practices are determined by that practice, not the hospital. If your insurance company requires that you see a specialist from their approved list, it is your responsibility to contact your insurance company to make those arrangements. It is also your responsibility to follow any other requirements of your insurance company necessary to obtain coverage for claims submitted. We will bill your insurance; however, you are responsible today for any co-pay amounts. You will receive a separate bill for any services you may have received including: emergency, radiology, or pathology physicians. Patient Name:CECILIA IBANEZ I have received this information and was given the opportunity to ask questions. Patient/Impregnator And Drier Helper Name: Patient/Impregnator And Drier Helper Signature: Relationship to Patient: Clinician/Hospital Impregnator And Drier Helper Signature: Please Provide a Telephone Number Where You Can Be Reached: Is it Permissible To Leave a Message? Date: documented in this encounter Plan of Treatment Not on file documented as of this encounter Visit Diagnoses Not on filedocumented in this encounter Care Teams Professional Development Director Relationship Specialty Start Date End Date Toan Bailey MD [address] [address] PCP - General Family Medicine 05/27/22 documented as of this encounter
--- OUTSIDE RECORDS SUMMARY | 2025-06-28 14:11 | XMS_ITS | Encounter Summary ---
Author Organization [employer] ([place], [place], [place], [place]) Address [address] [place] [address] Care Team Providers Care Splitter Machine Name Role Phone Toan Bailey MD Primary Care Provider [phone] Encounter Details Date Type Department Care Team (Late st Contact Info) Description 08/28/2020 Transcribed Document [facility] [place] [facility] [place] [address] ProviderMohan MD [address] [place] [address] Social History Tobacco Use Types Packs/Day Years Used Date Smoking Tobacco: Never Assessed Sex and Gender Information Value Date Recorded Sex Assigned at Not on file Legal Sex Male 5:25 PM CDT Gender Identity Not on file Sexual Orientation Not on file documented as of this encounter Miscellaneous Notes * Cerner Conversion Note - Historical ProviderMD - 08/28/2020 11:58 AM 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 Vital Signs ED Entered On: 08/28/2020 11:58 EST Performed On: 08/28/2020 11:58 EST by Kylie Turner RN Vital Signs ED Temperature Source : Oral Temperature Mode : Fahrenheit Temperature, Fahrenheit : 98.1 Deg F Clinical Temperature, C : 36.7 Deg C Oxygen Therapy Mode : Room air Peripheral Pulse Rate : 81 bpm Respiratory Rate : 18 Breaths/Min Systolic Blood Pressure : 161 mmHg (HI) Diastolic Blood Pressure : 77 mmHg Oxygen Saturation : 97 % Kylie Turner RN - 08/28/2020 11:58 EST Electronically signed by Tiesha [facility] Conversion Hand Cultivator Cerner at 12/14/2022 11:28 AM CDT documented in this encounter Plan of Treatment Not on file documented as of this encounter Visit Diagnoses Not on filedocumented in this encounter Care Teams Splitter Machine Relationship Specialty Start Date End Date Toan Bailey MD [address] [address] PCP - General Family Medicine 05/27/22 documented as of this encounter
--- OUTSIDE RECORDS SUMMARY | 2025-06-28 14:11 | XMS_ITS | Encounter Summary ---
Author Organization [employer] ([place], [place], [place], [place]) Address [address] [place] [address] Care Team Providers Care Commercial Escrow Assistant Name Role Phone Toan Bailey MD Primary Care Provider [phone] Encounter Details Date Type Department Care Team (Late st Contact Info) Description 08/28/2020 Transcribed Document [facility] [place] [facility] [place] [address] ProviderMohan MD [address] [place] [address] Social History Tobacco Use Types Packs/Day Years Used Date Smoking Tobacco: Never Assessed Sex and Gender Information Value Date Recorded Sex Assigned at Not on file Legal Sex Male 5:25 PM CDT Gender Identity Not on file Sexual Orientation Not on file documented as of this encounter Miscellaneous Notes * Cerner Conversion Note - Mohan ProviderMD - 08/28/2020 11:51 AM COMPOSITE ENGINEER ED Assessment Entered On: 08/28/2020 12:03 EST Performed On: 08/28/2020 12:01 EST by Kylie Turner RN ED Quick Look Assessment Level of Consciousness : Alert, Awake Affect/Behavior : Appropriate, Calm, Cooperative Orientation : Oriented x 4 Kylie Turner RN - 08/28/2020 12:01 EST ED General-Functional Assess Preferred Communication Mode : Written Communication Barrier : None Primary Language : Jordanian Any Spiritual/Cultural Needs or Requests : No Currently in Unsafe Situation : No Kylie Turner RN - 08/28/2020 12:01 EST Social Habits Smoking Status : Never (less than 100 in lifetime; none in last 30 days) Smokeless Tobacco Status : Never Desires Tobacco Cessation Calc : 0 Kylie Turner RN - 08/28/2020 12:01 EST Social History (As Of: 08/28/2020 12:03:29 EST) Tobacco: Use in Last 12 Months: No. (Last Updated: 09/07/2014 12:27:17 EST by EDWIN SEGOVIA PA) Alcohol: Alcohol Use History No. (Last Updated: 01/03/2016 07:19:41 EDT by Maxine Branham RN) Home/Environment: Lives with Spouse. Living situation: Home/Independent. (Last Updated: 09/07/2014 12:27:25 EST by EDWIN SEGOVIA PA) Cardiovascular ASMT, ED Cardiovascular Assessment WDL : WDL with exceptions (Comment: c/o intermittent lightheadedness and HTN up to 170s/90s since yesterday. Denies cp, soa, palpitations Hx CAD s/p CABG. [Kylie Turner RN - 08/28/2020 12:01 EST] ) Kylie Turner RN - 08/28/2020 12:01 EST Respiratory Respiratory Assessment WDL : WDL Kylie Turner RN - 08/28/2020 12:01 EST Neurologic ASMT, ED Neurologic Assessment WDL : WDL with exceptions (Comment: c/o dizziness/lightheadedness intermittently since yesterday. ocassional sensation of room spinning. Alert and ambulatory without assist on arrival [Kyile Turner RN - 08/28/2020 12:01 EST] ) Kylie Turner RN - 08/28/2020 12:01 EST documented in this encounter Plan of Treatment Not on file documented as of this encounter Visit Diagnoses Not on filedocumented in this encounter Care Teams Commercial Escrow Assistant Relationship Specialty Start Date End Date Toan Bailey MD [facility] [address] PCP - General Family Medicine 05/27/22 documented as of this encounter
--- OUTSIDE RECORDS SUMMARY | 2025-06-28 14:11 | XMS_ITS | Encounter Summary ---
Author Organization [employer] ([place], [place], [place], [place]) Address [address] [place] [address] Care Team Providers Care Stockbroking Dealer Name Role Phone Toan Bailey MD Primary Care Provider [phone] Encounter Details Date Type Department Care Team (Late st Contact Info) Description 08/29/2020 Transcribed Document [facility] [place] [address] [place] [address] ProviderMohan MD [address] [place] [address] Social History Tobacco Use Types Packs/Day Years Used Date Smoking Tobacco: Never Assessed Sex and Gender Information Value Date Recorded Sex Assigned at Not on file Legal Sex Male 5:25 PM CDT Gender Identity Not on file Sexual Orientation Not on file documented as of this encounter Miscellaneous Notes * Cerner Conversion Note - Historical ProviderMD - 08/29/2020 6:04 PM WEAPONS SYSTEM INSTRUMENT MECHANIC CR Chest 1 Vw Portable Ordered: 08/28/2020 Modified Reason for Exam: SOA 08/29/2020 17:45 08/29/2020 18:04 (ZACHARIAH VILLA PA-C) Reviewed by Provider, No further action required x1 documented in this encounter Plan of Treatment Not on file documented as of this encounter Visit Diagnoses Not on filedocumented in this encounter Care Teams Stockbroking Dealer Relationship Specialty Start Date End Date Toan Bailey MD [address] [phone] PCP - General Family Medicine 05/27/22 documented as of this encounter
--- OUTSIDE RECORDS SUMMARY | 2025-06-28 14:11 | XMS_ITS | Encounter Summary ---
Author Organization [employer] ([place], [place], [place], [place]) Address [address] [place] [address] Care Team Providers Care Peanut Blancher Name Role Phone Toan Bailey MD Primary Care Provider [phone] Encounter Details Date Type Department Care Team (Late st Contact Info) Description 08/28/2020 Transcribed Document [facility] [place] [facility] [address] ProviderMohan MD [address] [place] [id number] Social History Tobacco Use Types Packs/Day Years Used Date Smoking Tobacco: Never Assessed Sex and Gender Information Value Date Recorded Sex Assigned at Not on file Legal Sex Male 5:25 PM CDT Gender Identity Not on file Sexual Orientation Not on file documented as of this encounter Miscellaneous Notes * Cerner Conversion Note - Mohan Dalal MD - 08/28/2020 2:50 PM CATALYST SUPERVISOR Patient: CECILIA IBANEZ Age: 75 years Sex: Male : 1945 Associated Diagnoses: Near syncope Author: ODIN JAFFE MD-EMR Basic Information Time seen: Date 08/28/2020, Immediately upon arrival. History source: Patient. Arrival mode: Private vehicle, walking. History limitation: None. Additional information: Chief Complaint from Nursing Triage Note : Chief Complaint 08/28/2020 11:56 EST Chief Complaint woke up yesterday morning and started feeling dizzy and c/o bp issues, my blood pressure is always 120/80 and its not been that . pt denies any chest pain or soa . History of Present Illness The patient presents with near syncope. The onset was 2 days ago. The course/duration of symptoms is episodic: with a few episodes. The location where the incident occurred was at home. The exacerbating factor is standing. The relieving factor is rest. Risk factors consist of coronary artery disease, hypertension and age. Prior episodes: none. Therapy today: none. Preceding symptoms: lightheaded, no palpitations, no nausea no headache. Associated symptoms: none. Associated injury to the none. She reports a few episodes over the past 2 to 3 days where he felt lightheaded upon standing. Reports that he has not lost consciousness and after giving some time while standing the symptoms went away. He denies chest pain, shortness of breath.He denies sensation of room spinning, vertigo, difficulty walking.. Review of Systems Constitutional symptoms: Negative except as documented in HPI. Skin symptoms: Negative except as documented in HPI. Eye symptoms: Negative except as documented in HPI. ENMT symptoms: Negative except as documented in HPI. Respiratory symptoms: Negative except as documented in HPI. Cardiovascular symptoms: Negative except as documented in HPI. Gastrointestinal symptoms: Negative except as documented in HPI. Genitourinary symptoms: Negative except as documented in HPI. Musculoskeletal symptoms: Negative except as documented in HPI. Neurologic symptoms: Dizziness. Psychiatric symptoms: Negative except as documented in HPI. Endocrine symptoms: Negative except as documented in HPI. Hematologic/Lymphatic symptoms: Negative except as documented in HPI. Allergy/immunologic symptoms: Negative except as documented in HPI. Additional review of systems information: All other systems reviewed and otherwise negative. Health Status Allergies: Allergic Reactions (Selected) Severity Not Documented Amoxicillin- No reactions were documented. Codeine- No reactions were documented. Contrast Dye- No reactions were documented. Lisinopril- No reactions were documented. Pyridium- No reactions were documented.. Medications: (Selected) Prescriptions Prescribed Nitrostat 0.4 mg sublingual tablet: 1 Tab, SubLINgual, Q5Min, PRN: Chest Pain, 240 Tab, 6 Refill(s) Plavix 75 mg oral tablet: 1 Tab, Oral, Daily, for 30 Day(s), 30 Tab, 11 Refill(s) Ranexa 500 mg oral tablet, extended release: 1 Tab, Oral, BID, for 30 Day(s), 60 Tab, 11 Refill(s) Documented Medications Documented Fasprin 81 mg oral tablet, disintegratin Tab, Oral, Daily Metoprolol Tartrate 25 mg oral tablet: 1 Tab, Oral, BID, 60 Tab Tylenol 325 mg oral tablet: 2 Tab, Oral, Q4H, PRN: Pain (Mild 1-3), 0 Refill(s) Zoloft 100 mg oral tablet: 1.5 Tab, Oral, Daily, 30 Tab atorvastatin 80 mg oral tablet: 1 Tab, Oral, At Bedtime, 0 Refill(s) hydrochlorothiazide 25 mg oral tablet: 1 Tab, Oral, Daily, 30 Tab, 0 Refill(s) metformin 500 mg oral tablet: 1 Tab, Oral, BID, 60 Tab traZODone 50 mg oral tablet: 1 Tab, Oral, At Bedtime, 270 Tab, 0 Refill(s). Past Medical/ Family/ Social History Surgical history: History of shoulder surgery ([id number]). CABG - Coronary artery bypass graft ([id number]). Stented coronary artery ([id number]). lithotripsy.. Family history: No family history items have been selected or recorded.. Social history: Social & Psychosocial Habits Alcohol 01/03/2016 Alcohol Use History, Social Habits No Home/Environment 09/07/2014 Lives with: Spouse Living situation: Home/Independent Tobacco 09/07/2014 Tobacco Use Within Last Twelve Months No . Problem list: Active Problems (10) Arthritis CAD - Coronary artery disease Depression Diabetes mellitus type II Heart attack Heart failure Hyperlipidemia Hypertension Iodine allergy Kidney stone . Physical Examination Vital Signs Vital Signs/Vital Measures 08/28/2020 12:59 EST Systolic Blood Pressure, Supine 141 mmHg Diastolic Blood Pressure, Supine 83 mmHg Pulse Supine 80 bpm Systolic Blood Pressure, Sitting 138 mmHg Diastolic Blood Pressure, Sitting 81 mmHg Pulse Sitting 81 bpm Systolic Blood Pressure, Standing 144 mmHg Diastolic Blood Pressure, Standing 85 mmHg Pulse Standing 83 bpm Temperature Mode Fahrenheit 08/28/2020 12:30 EST Systolic Blood Pressure 129 mmHg Diastolic Blood Pressure 69 mmHg Mean Arterial Pressure (MAP)-BMDI 94 Heart Rate Monitored 76 bpm Respiratory Rate 20 Breaths/Min Oxygen Saturation 96 % Oxygen Therapy Mode Room air 08/28/2020 11:58 EST Systolic Blood Pressure 161 mmHg HI Diastolic Blood Pressure 77 mmHg Temperature Source Oral Temperature Mode Fahrenheit Temperature, Fahrenheit 98.1 Deg F Clinical Temperature, C 36.7 Deg C Peripheral Pulse Rate 81 bpm Respiratory Rate 18 Breaths/Min Oxygen Saturation 97 % Oxygen Therapy Mode Room air . Measurements 08/28/2020 11:56 EST Height Source Stated Height Entry Format [place] Height/Length, GEORGIAN (ft) 5 ft Height/Length GEORGIAN 9 Inch CLINICALHEIGHT 175.26 cm [place] Body Weight 69.73 kg Weight Source, ED Critical estimated dosing weight Weight Entry Format [place] Weight [place] Islander lb 175 lb CLINICALWEIGHT 79.55 kg Body Surface Area (BSA) 1.95 m2 Body Mass Index 25.9 kg/m2 HI . Oxygen Saturation 08/28/2020 12:30 EST Oxygen Saturation 96 % 08/28/2020 11:58 EST Oxygen Saturation 97 % . General: Alert, no acute distress. Climax coma scale: Total score: Total score: 15. Neurological: Alert and oriented to person, place, time, and situation, No focal neurological deficit observed. Skin: Warm, dry, pink, intact. Neck: Supple, trachea midline, no tenderness, no JVD, no carotid bruit. Cardiovascular: Regular rate and rhythm, No murmur, Normal peripheral perfusion, No edema. Respiratory: Lungs are clear to auscultation, respirations are non-labored, breath sounds are equal, Symmetrical chest wall expansion. Gastrointestinal: Soft, Nontender, Non distended, Normal bowel sounds, No organomegaly. Back: Nontender, Normal range of motion. Lymphatics: No lymphadenopathy. Psychiatric: Cooperative. Medical Decision Making Differential Diagnosis: Near syncope, dysrhythmia, dizziness, vasovagal episode. Documents reviewed: Emergency department nurses' notes. Electrocardiogram: Time 08/28/2020 12:00:00, rate 68, [place] is normal. , T wave No changes, Ectopy None, P wave and NM interval WNL, QT interval WNL, QRS interval Right bundle branch block, Interpretation by Emergency Physician Interpreted by me contemporaneously with care. Results review: Lab results : Lab Results 08/28/2020 12:35 EST Sodium Level 140 mmol/L Potassium Level 3.6 mmol/L Chloride Level 107 mmol/L Carbon Dioxide Level 26 mmol/L Anion Gap 11 Glucose Level 105 mg/dL Blood Urea Nitrogen 18 mg/dL Creatinine Level 1.30 mg/dL eGFR >60 mL/min/1.73m2 eGFR NonAfrican 54 mL/min/1.73m2 LOW Bun/Creatinine 13.8 Calcium Level 9.6 mg/dL Protein Total 6.9 Gram/dL Albumin Level 3.7 Gram/dL Globulin 3.2 Gram/dL A/G Ratio 1.2 Bilirubin Total 0.5 mg/dL Alk Phos 109 Units/Liter AST 25 Units/Liter ALT 39 Units/Liter Magnesium Level 2.0 mg/dL Phosphorus 4.0 mg/dL Troponin I Ultra <0.015 ng/mL WBC 7.4 K/uL RBC 4.37 Million/uL Hgb 15.1 g/dL Hct 42.8 % MCV 97.9 fL HI MCH 34.6 pg HI MCHC 35.3 Gram/dL Platelet Count 227 K/uL MPV 9.3 fL LOW RDW 11.6 % LOW Neut % 73.4 % HI Neut # 5.46 K/uL Lymph % 16.8 % LOW Lymph # 1.25 x10(3)/uL [place] % 8.6 % [place] # 0.64 K/uL Eos % 0.4 % Eos # 0.03 x10(3)/uL Baso % 0.4 % Baso # 0.03 x10(3)/uL Slide Review No IG# 0.03 x10(3)/uL IG% 0.40 % . Head Computed Tomography: Radiology Results (Last 48 hours) [id number] -- 08/28/2020 11:51 CR Chest 1 Vw Portable (08/28/2020 12:31) Result: PORTABLE CHEST HISTORY: Shortness of air.COMPARISON: September 07, 2014.FINDINGS: The heart is normal in size. The mediastinum is unremarkable.The lungs are clear. There is no pneumothorax. IMPRESSION: No acute cardiopulmonary process.Images reviewed, interpreted, and dictated by Dr. Mega Jansen.Transcribed by Concepción Blanca PA-C. CT Head WO (08/28/2020 12:44) Result: HEAD CT 08/28/2020 11:23 AM HISTORY: Weakness and dizziness.COMPARISON: None.TECHNIQUE: Multiple axial CT images were performed from the foramenmagnum to the vertex. This study was performed with techniques to keepradiation doses as low as reasonably achievable, (ALARA). Individualizeddose reduction techniques using automated exposure control or adjustmentof mA and/or kV according to the patient size were employed.FINDINGS: The ventricles are enlarged. There is diffuse atrophy. Thereis no evidence of hemorrhage. No masses are identified. No extra-axialfluid is seen. The sinuses demonstrate a polyp or cyst in the rightmaxillary sinus. IMPRESSION: Ventriculomegaly may be out of proportion to the degree ofcortical volume loss. Consider normal pressure hydrocephalus. Images reviewed, interpreted, and dictated by Dr. Silvano Mitchell.Transcribed by Pasquale Ray (R).I have personally viewed, interpreted and dictated the examination. Ihave read and agree with the above final transcribed report. . Reexamination/ Reevaluation Time: 08/28/2020 14:55:00 . Notes: Orthostatics negative. Laboratory work-up otherwise unremarkable. CT head with atrophy out of proportion to age. Symptoms appear to be more consistent with orthostasis though as patient reports only feeling symptoms when he stands abruptly. No room spinning, difficulty walking, vertigo sensation.Given IVF here. Advised to follow-up with primary care physician.. Impression and Plan Diagnosis Near syncope - Discharge, Medical Plan Condition: Improved. Disposition: Discharged Admit/Transfer/Discharge: Discharge (Order): Start: 08/28/2020 14:58 EST, Discharge to: Home. Patient was given the following educational materials: Near-Syncope. Follow up with: TOAN BAILEY Within 2 to 3 days. Counseled: Patient, Regarding diagnosis, Regarding diagnostic results, Regarding treatment plan, Regarding prescription, Patient indicated understanding of instructions. documented in this encounter Plan of Treatment Not on file documented as of this encounter Visit Diagnoses Not on filedocumented in this encounter Care Teams Peanut Blancher Relationship Specialty Start Date End Date Toan Bailey MD [address] [phone] PCP - General Family Medicine 05/27/22 documented as of this encounter
--- OUTSIDE RECORDS SUMMARY | 2025-06-28 14:11 | XMS_ITS | Clinical Summary ---
Author Organization [employer] ([place], [place], [place], [place]) Address [address] [place] [address] Care Team Providers Care Equipment Application Specialist Name Role Phone Toan Bailey MD Primary Care Provider [phone] Allergies Active Allergy Reactions Criticality Noted Date [...] Date Elan rded Speak language other than Greek at home Not on file 09/09/2023 Want [...] 03/12/2023 11:30 AM EDT Plan of Treatment Health Maintenance Due Date Last Done Comments Diabetic Kidney Health Evaluation (KED) 1945 Diabetic Eye Exam 1957 Hepatitis C Screening 1965 DTAP/TDAP/TD VACCINES (1 - Tdap) 1966 Pneumococcal 50+ years (1 of 2 - PCV) 1966 Shingles Vaccine (Zoster) (1 of 2) 1997 Respiratory Syncytial Virus (RSV) Adult or (1 - 1-dose 75+ series) 2022 Hemoglobin A1C 07/01/2022 Medicare Initial AWV G0438 08/31/2023 Tobacco Cessation Counseling and Screening (12+) 03/1203/12/2023 Falls Risk Screening 08/30/2024 COVID-19 VACCINE (2 - season) 04/30/202506/2021 Influenza Vaccine (#1) 2025 Insurance [facility] MEDICARE HMO Care Teams Equipment Application Specialist Relationship Specialty Start Date End Date Toan Bailey MD [address] [phone] PCP - General Family Medicine 05/27/22
--- OUTSIDE RECORDS SUMMARY | 2025-06-28 14:11 | XMS_ITS | Encounter Summary ---
Author Organization [employer] ([place], [place], [place], [place]) Address [address] [place] [address] Care Team Providers Care Veterinary Medicine Teacher Name Role Phone Toan Bailey MD Primary Care Provider [phone] Encounter Details Date Type Department Care Team (Late st Contact Info) Description 08/28/2020 Transcribed Document [facility] [place] [facility] [place] [address] ProviderMohan MD [address] [place] [address] Social History Tobacco Use Types Packs/Day Years Used Date Smoking Tobacco: Never Assessed Sex and Gender Information Value Date Recorded Sex Assigned at Not on file Legal Sex Male 5:25 PM CDT Gender Identity Not on file Sexual Orientation Not on file documented as of this encounter Miscellaneous Notes * Cerner Conversion Note - Historical ProviderMD - 08/28/2020 3:37 PM YEAST SUPERVISOR ED Discharge Entered On: 08/28/2020 15:37 EST Performed On: 08/28/2020 15:37 EST by Kylie Turner RN Discharge Process Patient Disposition : Discharge Personal Belongings With Patient : Yes Patient Education Completed : Yes Teaching Evaluation : Verbalizes understanding IV Discontinued : Yes Kylie Turner RN - 08/28/2020 15:37 EST ED Discharge Discharge To : Home with ambulatory/outpatient follow-up Mode Of Departure : Wheelchair Accompanied By : Spouse Discharge Instructions Reviewed With, Opportunity For Questions Given : Patient Prescriptions Given to Patient : No Kylie Turner RN - 08/28/2020 15:37 EST documented in this encounter Plan of Treatment Not on file documented as of this encounter Visit Diagnoses Not on filedocumented in this encounter Care Teams Veterinary Medicine Teacher Relationship Specialty Start Date End Date Toan Bailey MD [address] [place] [phone] PCP - General Family Medicine 05/27/22 documented as of this encounter
--- OUTSIDE RECORDS SUMMARY | 2025-06-28 14:11 | XMS_ITS | Encounter Summary ---
Author Organization [employer] ([place], [place], [place], [place]) Address [address] [place] [address] Care Team Providers Care Cma Or Lpn Name Role Phone Toan Bailey MD Primary Care Provider [phone] Encounter Details Date Type Department Care Team (Late st Contact Info) Description 08/28/2020 Transcribed Document [facility] [place] [address] [place] [address] ProviderMohan MD [address] [place] [address] Social History Tobacco Use Types Packs/Day Years Used Date Smoking Tobacco: Never Assessed Sex and Gender Information Value Date Recorded Sex Assigned at Not on file Legal Sex Male 5:25 PM CDT Gender Identity Not on file Sexual Orientation Not on file documented as of this encounter Miscellaneous Notes * Cerner Conversion Note - Historical ProviderMD - 08/28/2020 2:59 PM PULPWOOD DEALER Electronically signed by Tiesha [facility] Conversion Park Worker Supervisor Cerner at 12/14/2022 11:17 AM CDT documented in this encounter Plan of Treatment Not on file documented as of this encounter Visit Diagnoses Not on filedocumented in this encounter Care Teams Cma Or Lpn Relationship Specialty Start Date End Date Toan Bailey MD [address] [phone] PCP - General Family Medicine 05/27/22 documented as of this encounter
--- OUTSIDE RECORDS SUMMARY | 2025-06-28 14:11 | XMS_ITS | Encounter Summary ---
Author Organization [employer] ([place], [place], [place], [place]) Address [address] [place] [address] Care Team Providers Care Twitchell Operator Name Role Phone Toan Bailey MD Primary Care Provider [phone] Encounter Details Date Type Department Care Team (Late st Contact Info) Description 08/28/2020 Transcribed Document [facility] [place] [address] ProviderMohan MD [address] [place] [id number] Social History Tobacco Use Types Packs/Day Years Used Date Smoking Tobacco: Never Assessed Sex and Gender Information Value Date Recorded Sex Assigned at Not on file Legal Sex Male 5:25 PM CDT Gender Identity Not on file Sexual Orientation Not on file documented as of this encounter Miscellaneous Notes * Cerner Conversion Note - Mohan ProviderMD - 08/28/2020 11:51 AM 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 pt denies any chest pain or soa Triage Date/Time : 08/28/2020 11:56 EST Kylie Turner RN - 08/28/2020 11:56 EST DCP GENERIC CODE Tracking Acuity : 3 - Urgent Tracking Group : [facility] ED Kylie Turner RN - 08/28/2020 11:56 EST Mode of Arrival : Ambulatory Transported to ED by : Private vehicle To Room Via : Ambulate Accompanied By : Unaccompanied Height & Weight : Document ED Allergies : Document ED Reason for Visit : Document Tetanus Immunization : Less than 5 years Dental Billing Specialist Needed : No Kylie Turner RN - 08/28/2020 11:56 EST Infectious Disease History Has the patient ever been tested for COVID-19? : No, Patient stated Does patient have symptoms of COVID-19? : No COVID19 Screening : No Experiencing Infectious Disease Symptoms : No symptoms Physical contact outside [place] in the last 30 days : No Infectious Disease History : Chicken pox/Shingles, Measles, VRE Tuberculosis Symptoms : None Kylie Turner RN - 08/28/2020 11:56 EST Allergy (As Of: 08/28/2020 11:57:53 EST) Allergies (Active) amoxicillin Estimated Onset Date: Unspecified ; Created By: MELISSA Gonzales; Reaction Status: Active ; Category: Drug ; Substance: amoxicillin ; Type: Allergy ; Updated By: MELISSA Gonzales; Reviewed Date: 08/28/2020 11:57 EST codeine Estimated Onset Date: Unspecified ; Created By: MELISSA Gonzales; Reaction Status: Active ; Category: Drug ; Substance: codeine ; Type: Allergy ; Updated By: MELISSA Gonzales; Reviewed Date: 08/28/2020 11:57 EST Contrast Dye Estimated Onset Date: Unspecified ; Comments: Comment 1: Replaced free text allergy ; Created By: ROSALIO MUÑOZ RPh; Reaction Status: Active ; Category: Drug ; Substance: Contrast Dye ; Type: Allergy ; Updated By: ROSALIO MUÑOZ RPh; Reviewed Date: 08/28/2020 11:57 EST lisinopril Estimated Onset Date: Unspecified ; Created By: PATRICIA CUTLER MD; Reaction Status: Active ; Category: Drug ; Substance: lisinopril ; Type: Allergy ; Updated By: PATRICIA CUTLER MD; Reviewed Date: 08/28/2020 11:57 EST Pyridium Estimated Onset Date: Unspecified ; Comments: Comment 1: Replaced free text allergy ; Created By: ROSALIO MUÑOZ RPh; Reaction Status: Active ; Category: Drug ; Substance: Pyridium ; Type: Allergy ; Updated By: ROSALIO MUÑOZ RPh; Reviewed Date: 08/28/2020 11:57 EST Diagnosis Control ED (As Of: 08/28/2020 11:57:53 EST) Problems(Active) Arthritis (SNOMED CT :5363774 ) Name of Problem: Arthritis ; Recorder: Maxine Branham RN; Confirmation: Confirmed ; Classification: Patient Stated ; Code: [id number] ; Contributor System: PowerChart ; Last Updated: 01/03/2016 7:17 EDT ; Life Cycle Date: 01/03/2016 ; Life Cycle Status: Active ; Vocabulary: SNOMED CT CAD - Coronary artery disease (SNOMED CT :6161884003 ) Name of Problem: CAD - Coronary artery disease ; Recorder: OSWALDO MORENO APRN-INT; Confirmation: Confirmed ; Classification: Medical ; Code: [id number] ; Contributor System: PowerChart ; Last Updated: 02/13/2014 10:53 EDT ; Life Cycle Date: 05/22/2013 ; Life Cycle Status: Active ; Responsible Provider: OSWALDO MORENO APRN-INT; Vocabulary: SNOMED CT Depression (SNOMED CT :060917836 ) Name of Problem: Depression ; Recorder: Tico Hebert RN; Confirmation: Confirmed ; Classification: Patient Stated ; Code: [id number] ; Contributor System: PowerChart ; Last Updated: 02/08/2014 19:31 EDT ; Life Cycle Date: 05/22/2013 ; Life Cycle Status: Active ; Vocabulary: SNOMED CT Diabetes mellitus type II (SNOMED CT :12814901 ) Name of Problem: Diabetes mellitus type II ; Recorder: Maxine Branham RN; Confirmation: Confirmed ; Classification: Patient Stated ; Code: 64876095 ; Contributor System: PowerChart ; Last Updated: 01/03/2016 7:17 EDT ; Life Cycle Date: 01/03/2016 ; Life Cycle Status: Active ; Vocabulary: SNOMED CT Heart attack (SNOMED CT :14208984 ) Name of Problem: Heart attack ; Recorder: Tico Hebert RN; Confirmation: Confirmed ; Classification: Patient Stated ; Code: 29375930 ; Contributor System: PowerChart ; Last Updated: 02/08/2014 19:31 EDT ; Life Cycle Date: 05/22/2013 ; Life Cycle Status: Active ; Vocabulary: SNOMED CT Heart failure (SNOMED CT :904635849 ) Name of Problem: Heart failure ; Recorder: Maxine Branham RN; Confirmation: Confirmed ; Classification: Patient Stated ; Code: 030611039 ; Contributor System: PowerChart ; Last Updated: 01/03/2016 7:16 EDT ; Life Cycle Date: 01/03/2016 ; Life Cycle Status: Active ; Vocabulary: SNOMED CT Hyperlipidemia (SNOMED CT :31875440 ) Name of Problem: Hyperlipidemia ; Recorder: OSWALDO MORENO APRN-INT; Confirmation: Confirmed ; Classification: Medical ; Code: 87539094 ; Contributor System: PowerChart ; Last Updated: 02/08/2014 19:31 EDT ; Life Cycle Date: 05/22/2013 ; Life Cycle Status: Active ; Responsible Provider: OSWALDO MORENO APRN-INT; Vocabulary: SNOMED CT Hypertension (SNOMED CT :89949051 ) Name of Problem: Hypertension ; Recorder: Tico Hebert RN; Confirmation: Confirmed ; Classification: Patient Stated ; Code: 55281229 ; Contributor System: PowerChart ; Last Updated: 02/08/2014 19:31 EDT ; Life Cycle Date: 05/22/2013 ; Life Cycle Status: Active ; Vocabulary: SNOMED CT Iodine allergy (SNOMED CT :607348939 ) Name of Problem: Iodine allergy ; Recorder: OSWALDO MORENO APRN-INT; Confirmation: Confirmed ; Classification: Medical ; Code: 434029977 ; Contributor System: PowerChart ; Last Updated: 05/22/2013 22:31 EDT ; Life Cycle Date: 05/22/2013 ; Life Cycle Status: Active ; Responsible Provider: OSWALDO MORENO APRN-INT; Vocabulary: SNOMED CT Kidney stone (SNOMED CT :200368527 ) Name of Problem: Kidney stone ; Recorder: Tico Hebert RN; Confirmation: Confirmed ; Classification: Patient Stated ; Code: 989539091 ; Contributor System: PowerChart ; Last Updated: 02/08/2014 19:31 EDT ; Life Cycle Date: 05/22/2013 ; Life Cycle Status: Active ; Vocabulary: SNOMED CT Diagnoses(Active) Dizziness Date: 08/28/2020 ; Diagnosis Type: Reason For Visit ; Confirmation: Complaint of ; Clinical Dx: Dizziness ; Classification: Medical ; Clinical Service: Non-Specified ; Code: PNED ; Probability: 0 ; Diagnosis Code: [id number] ED Height and Weight Height Source : Stated Height Entry Format : [place] Height, Feet : 5 ft(Converted to: 152 cm, 60 Inch) Height, Inches : 9 Inch(Converted to: 0 ft 9 Inch, 22.86 cm) Clinical Height : 175.26 cm Weight Source, ED : Critical estimated dosing weight Weight Entry Format : [place] Weight, Pounds : 175 lb Clinical Dosing Weight : 79.55 kg Body Surface Area (BSA) : 1.95 m2 Body Mass Index : 25.9 kg/m2 (HI) Happy Body Weight (IBW) : 69.73 kg Kylie Turner RN - 08/28/2020 11:56 EST Electronically signed by [facility] Conversion Gas Collection System Operator Cerner at 12/14/2022 11:18 AM CDT documented in this encounter Plan of Treatment Not on file documented as of this encounter Visit Diagnoses Not on filedocumented in this encounter Care Teams Twitchell Operator Relationship Specialty Start Date End Date Toan Bailey MD [facility] [address] [address] PCP - General Family Medicine 05/27/22 documented as of this encounter
--- OUTSIDE RECORDS SUMMARY | 2025-06-28 14:11 | XMS_ITS | Clinical Summary ---
Author Organization [facility] Address [address] [place] [address] Care Team Providers Care Industrial Cleaner Name Role Phone Toan Bailey MD Primary Care Provider [phone] Allergies Active Allergy Reactions Criticality Noted Date Comments Codeine Unknown - Patient st ates they do not know rxn details Low 02/21/2019 Iodine Unknown - Patient st ates they do not know rxn details Low 02/21/2019 Shellfish Allergy Unknown - Patient st ates they do not know rxn details Low 04/07/2019 Medications Artificial Tear Solution (Just Tears Eye Drops) solution 08/08/2019 Act moreno Aspirin Buf,CaCarb-MgCa rb-MgO, 81 MG tablet 02/21/2019 Active atorvastatin (Lipitor) 80 MG tablet Take 80 mg by mouth 1 (one) time each day. 04/04/2022 Active Blood Glucose Monitoring Suppl (Accu-Chek Guide Me) w/Device kit 1 (one) time each day. 09/24/2021 Active busPIRone (Buspar) 10 MG tablet 09/16/2018 Active glimepiride (Amaryl) 1 MG tablet 04/07/2022 Active Accu-Chek Guide test strip USE 1 STRIP TO CHECK GLUCOSE ONCE DAILY 05/29/2022 Active hydroCHLOROthia zide (HYDRODiuril) 25 MG tablet TAKE 1 TABLET BY MOUTH IN THE MORNING NEEDED FOR EDEMA 05/14/2022 Active Accu-Chek Softclix Lancets lancets USE 1 TO CHECK GLUCOSE ONCE DAILY 05/19/2022 Active metFORMIN XR (Glucophage-XR) 500 MG 24 hr tablet TAKE 2 TABLETS BY MOUTH TWICE DAILY FOR DIABETES 05/29/2022 Active metoprolol tartrate (Lopressor) 50 MG tablet TAKE 1/2 (ONE-HALF) TABLET BY MOUTH ONCE DAILY 05/29/2022 Active tamsulosin (Flomax) 0.4 MG 24 hr capsule Take 0.4 mg by mouth every night. 05/29/2022 Active Brilinta 90 MG tablet 04/10/2022 Active valsartan (Diovan) 80 MG tablet Take 80 mg by mouth 1 (one) time each day. 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 02/21/2019 Resolved Problems Problem Noted Date Diagnosed Date Resolved Date Bilateral myopia 08/08/2019 05/20/2025 Bilateral presbyopia 08/08/2019 025 Family History Medical History Relation Name Comments Cardiac disorder Father Relation Name Status Comments Father Social History Tobacco Use Types Packs/Day Years Used Date Smoking Tobacco: Former Tobacco Cessation:Counseling Given: Not Answered Alcohol Use Standard Drinks/Week Comments No 0 (1 standard drink = 0.6 oz pur e alcohol) Sex and Gender Information Value Date Recorded Sex Assigned at Not on file Legal Sex Male 8:22 PM EDT Gender Identity Not on file Sexual Orientation Not on file Plan of Treatment Health Maintenance Due Date Last Done Comments [facility]-Depression Screening 1945 [facility]-Diabetes: Hemoglobin A1C 1945 [facility]-Hepatitis C Screening 1945 [facility]-Medicare Annual Wellness (AWV) 1945 [facility]-Infant/Child/Adol SDOH Screenings 1945 Diabetes: Dental Exam 1957 [facility]- SDOH Screenings 1965 [facility]-Adult SDOH Screenings 1965 [facility]-DTaP,Tdap,and Td Vaccine s (1 - Tdap) 1966 [facility]-Pneumococcal Vaccine: 50 + Years (1 of 2 - PCV) 1966 [facility]-Zoster Vaccines (1 of 2) 1997 [facility]-RSV Vaccine: 60+ Years o r (1 - 1-dose 75+ series) 2022 [id number] Vaccine (2 - 20 25-26 season) 2025 11/07/2020 [facility]-Influenza Vaccine (#1) 2025 HPV Vaccines Aged Out No longer eligi ble based on patient's age to complete this topic [facility]-HIB Vaccines Aged Out No longer e ligible based on patient's age to complete this topic [facility]-Hepatitis A Vaccines Aged Out No longer eligible based on patient's age to complete this topic [facility]-IPV Vaccines Aged Out No longer e ligible based on patient's age to complete this topic [facility]-Rotavirus Vaccines Aged Out No lo nger eligible based on patient's age to complete this topic Insurance [employer] Care Teams Industrial Cleaner Relationship Specialty Start Date End Date Toan Bailey MD [id number] [place] [address] PCP - General 01/10/21
== END 2025-06-27 23:59 | disposition home or self-care (01) ==
LOC: LAB.DROPOF 06-28 13:53
PROVIDERS: PCP Family Medicine; Visit Provider Family Medicine
DX: E53.8 Deficiency of other specified B group vitamins (principal); E11.9 Type 2 diabetes mellitus without complications; I10 Essential (primary) hypertension
CPT/HCPCS: 80053; 80061; 82043; 82570; 82607; 83036; 85025